=== PATIENT | female | born 1960 | race Caucasian/White ===

== ENCOUNTER 2020-04-22 09:07 | Emergency (ER) | payer OTHER ==
[2020-04-22] MEDS ORDERED: HYDROmorphone 1 MG/ML Syringe IVPUSH STA (09:43)
[2020-04-22] MEDS ORDERED: Ondansetron 4 MG/2 ML SDV IVPUSH ONE (09:43)
--- NOTE | 2020-04-22 09:47 | EDM.PDOC ---
ED HPI GENERAL MEDICAL PROBLEM - General Chief Complaint: Abdominal Pain Stated Complaint: ABDOMINAL AND BACK PAIN Time Seen by Provider: 04/22/20 09:20 Source of Information: Reports: Patient History Limitations: Reports: No Limitations - History of Present Illness INITIAL COMMENTS - FREE TEXT/NARRATIVE: Mrs. Remy is a very pleasant 59-year-old woman who now presents the ED with a complaint of upper abdominal pain, primarily in the epigastrium, but also to the right upper quadrant, and, less so, to the left upper quadrant, that began around 22:00 last night, while she was watching television. She describes the pain as sharp in character. She states that it radiates through to her midline back. She has not identified any modifiers. She has not had any nausea, altho ugh she did force herself to vomit this morning, in the hope that it would help her symptoms, which it did not. No prior similar symptoms. The patient states that she had similar symptoms about 1 month ago. They lasted for about 3 hours and resolved on their own. She did not seek medical attention at that time. The patient states that she ate dinner, consisting of chili, around 18:30 last night, followed by an apple around 21:30. She has not eaten anything since. Here in the ED, the patient is found to be hemodynamically stable, afebrile, saturating 98% on room air. Other than her upper abdominal pain, the patient denies recent fever, chills, sore throat, ear pain, nasal or sinus congestion, cough, dyspnea, chest pain, palpitations, nausea, vomiting, constipation, diarrhea, urinary symptoms, recent weight gain or weight loss, recent bloody bowel movements or black bowel movements, recent joint aches, headaches, or rashes. The patient's PCP is Aubrie Wells NP. Bilateral Chest Pain Score (Numeric/FACES): 10 - Related Data Allergies Allergy/AdvReac Type Severity Reaction Status Date / Time lorazepam AdvReac Depression Verified 08/18/16 18:59 Home Meds: Home Meds FLUoxetine [PROzac] 40 mg PO DAILY 04/22/20 [History] Lisinopril/Hydrochlorothiazide [Lisinopril-Hctz 20-25 mg Tab] 0.5 tab PO DAILY 04/22/20 [History] Simvastatin [Zocor] 40 mg PO BEDTIME 04/22/20 [History] SitaGLIPtin [Januvia] 100 mg PO DAILY 04/22/20 [History] buPROPion HCL [Bupropion Xl] 300 mg PO DAILY 04/22/20 [History] Past Medical History Cardiovascular History: Reports: High Cholesterol, Hypertension Gastrointestinal History: Reports: PUD Musculoskeletal History: Reports: Arthritis, Fracture (left wrist) Psychiatric History: Reports: Anxiety, Depression Endocrine/Metabolic History: Reports: Diabetes, Type II, Obesity/BMI 30+ - Past Surgical History HEENT Surgical History: Reports: Oral Surgery (wisdom teeth extraction) GI Surgical History: Reports: EGD (x 1) Female Surgical History: Reports: Hysterectomy (partial) Musculoskeletal Surgical History: Reports: Arthroscopic Knee (right) Oncologic Surgical History: Reports: Biopsy of Breast (benign; patient does not recall side) Social & Family History - Family History Family Medical History: Noncontributory Cardiac: Reports: Heart Failure, Hypertension Psychiatric: Reports: Depression Endocrine/Metabolic: Reports: Diabetes, type II - Tobacco Use Smoking Status *Q: Never Smoker - Caffeine Use Caffeine Use: Reports: Soda - Alcohol Use Alcohol Use History: Yes Alcohol Use Frequency: Rarely - Recreational Drug Use Recreational Drug Use: No - Living Situation & Occupation Living situation: Reports: , with Spouse Occupation: Employed ([employer]) ED ROS GENERAL - Review of Systems Review Of Systems: Comprehensive ROS is negative, except as noted in HPI. ED EXAM, GI/ABD - Physical Exam Exam: See Below Exam Limited By: No Limitations General Appearance: Alert, WD/WN, Mild Distress (appears uncomfortable) Eyes: Bilateral: Normal Appearance, EOMI Ears: Normal External Exam, Hearing Loss Nose: Normal Inspection Throat/Mouth: Normal Inspection, Normal Lips, Normal Voice, No Airway Compromise Head: Atraumatic, Normocephalic Neck: Normal Inspection, Full Range of Motion Respiratory/Chest: No Respiratory Distress, Lungs Clear, Normal Breath Sounds, No Accessory Muscle Use Cardiovascular: Normal Peripheral Pulses, Regular Rate, Rhythm, No Gallop, No JVD, No Murmur, No Rub GI/Abdominal Exam: Normal Bowel Sounds (active), Soft, No Organomegaly, No Distention, No Abnormal Bruit, No Mass, Tender (Primarily in the epigastrium, but also to the right upper quadrant, and, less so, to the left upper quadrant. Completely nontender elsewhere.) (Female) Exam: Deferred Back Exam: Normal Inspection, Full Range of Motion, Other (The patient indicates that her pain radiates through to her midline mid-back). 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) P-Wave: Present QRS: Other (Late transition) ST-T: Normal QT: Normal Comparison: NA - No Prior EKG Course - Vital Signs Last Recorded V/S: Last Vital Signs Temp 36.2 C 04/22/20 09:21 Pulse 82 04/22/20 09:21 Resp 20 04/22/20 09:21 BP 121/70 04/22/20 09:21 Pulse Ox 98 04/22/20 09:21 - Orders/Labs/Meds Orders: Active Orders 24 hr Category Date Time Status Sodium Chloride 0.9% [Normal Saline] 1,000 ml Med 04/22/20 09:45 Active IV ASDIRECTED Medication Orders Sodium Chloride (Normal Saline) 1,000 mls @ 150 mls/hr IV ASDIRECTED FERNANDA Last Admin: 04/22/20 09:55 Dose: 150 mls/hr Documented by: SUNITA Labs: Laboratory Tests 04/22/20 04/22/20 04/22/20 Range/Units 09:25 09:25 13:55 WBC 9.66 (3.98-10.04) K/mm3 RBC 4.23 (3.98-5.22) M/mm3 Hgb 12.5 (11.2-15.7) gm/dl Hct 38.9 (34.1-44.9) % MCV 92.0 (79.4-94.8) fl MCH 29.6 (25.6-32.2) pg MCHC 32.1 L (32.2-35.5) g/dl RDW Std Deviation 48.6 H (36.4-46.3) fL Plt Count 183 (182-369) K/mm3 MPV 11.6 (9.4-12.3) fl Neutrophils % (Manual) 75 H (40-60) % Band Neutrophils % 0 (0-10) % Lymphocytes % (Manual) 16 L (20-40) % Atypical Lymphs % 0 % Monocytes % (Manual) 7 (2-10) % Eosinophils % (Manual) 2 (0.7-5.8) % Basophils % (Manual) 0 L (0.1-1.2) Platelet Estimate Adequate RBC Morph Comment Normal Sodium 141 (136-145) mEq/L Potassium 3.5 (3.5-5.1) mEq/L Chloride 102 (98-107) mEq/L Carbon Dioxide 30 (21-32) mEq/L Anion Gap 12.5 (5-15) BUN 21 H (7-18) mg/dL Creatinine 1.2 H (0.55-1.02) mg/dL Est Cr Clr Drug Dosing 43.05 mL/min Estimated GFR (MDRD) 46 (>60) mL/min BUN/Creatinine Ratio 17.5 (14-18) Glucose 152 H (74-106) mg/dL Calcium 10.2 H (8.5-10.1) mg/dL Total Bilirubin 1.7 H 2.1 H (0.2-1.0) mg/dL AST 391 H 433 H (15-37) U/L ALT 249 H 307 H (14-59) U/L Alkaline Phosphatase 208 H 229 H (46-116) U/L Total Protein 6.4 (6.4-8.2) g/dl Albumin 3.6 (3.4-5.0) g/dl Globulin 2.8 gm/dL Albumin/Globulin Ratio 1.3 (1-2) Lipase 102 (73-393) U/L COVID-19 (ISABELLE) (NEGATIVE) 04/22/20 Range/Units 15:25 WBC (3.98-10.04) K/mm3 RBC (3.98-5.22) M/mm3 Hgb (11.2-15.7) gm/dl Hct (34.1-44.9) % MCV (79.4-94.8) fl MCH (25.6-32.2) pg MCHC (32.2-35.5) g/dl RDW Std Deviation (36.4-46.3) fL Plt Count (182-369) K/mm3 MPV (9.4-12.3) fl Neutrophils % (Manual) (40-60) % Band Neutrophils % (0-10) % Lymphocytes % (Manual) (20-40) % Atypical Lymphs % % Monocytes % (Manual) (2-10) % Eosinophils % (Manual) (0.7-5.8) % Basophils % (Manual) (0.1-1.2) Platelet Estimate RBC Morph Comment Sodium (136-145) mEq/L Potassium (3.5-5.1) mEq/L Chloride (98-107) mEq/L Carbon Dioxide (21-32) mEq/L Anion Gap (5-15) BUN (7-18) mg/dL Creatinine (0.55-1.02) mg/dL Est Cr Clr Drug Dosing mL/min Estimated GFR (MDRD) (>60) mL/min BUN/Creatinine Ratio (14-18) Glucose (74-106) mg/dL Calcium (8.5-10.1) mg/dL Total Bilirubin (0.2-1.0) mg/dL AST (15-37) U/L ALT (14-59) U/L Alkaline Phosphatase (46-116) U/L Total Protein (6.4-8.2) g/dl Albumin (3.4-5.0) g/dl Globulin gm/dL Albumin/Globulin Ratio (1-2) Lipase (73-393) U/L COVID-19 (ISABELLE) Negative (NEGATIVE) Meds: Medications Generic Name Dose Route Start Last Admin Trade Name Freq PRN Reason Stop Dose Admin Sodium Chloride 1,000 mls @ 150 mls/hr 04/22/20 09:45 04/22/20 09:55 Normal Saline IV 150 mls/hr ASDIRECTED FERNANDA Administration Discontinued Medications Generic Name Dose Route Start Last Admin Trade Name Freq PRN Reason Stop Dose Admin Diatrizoate Meglum/Diatrizoate Sod 90 ml 04/22/20 11:34 04/22/20 12:02 Gastrografin 37% PO 04/22/20 11:35 90 ml ONETIME ONE Administration Hydromorphone HCl 1 mg 04/22/20 09:43 08/09/20 09:56 Dilaudid IVPUSH 04/22/20 09:44 1 mg ONETIME STA Administration Iopamidol 50 ml 04/22/20 11:34 04/22/20 12:01 Isovue-300 (61%) IVPUSH 04/22/20 11:35 25 ml ONETIME ONE Administration Iopamidol 100 ml 04/22/20 11:34 04/22/20 12:01 Isovue-300 (61%) IVPUSH 04/22/20 11:35 100 ml ONETIME ONE Administration Ondansetron HCl 4 mg 04/22/20 09:43 04/22/20 09:56 Zofran IVPUSH 04/22/20 09:44 4 mg ONETIME ONE Administration Sodium Chloride 10 ml 04/22/20 11:34 04/22/20 12:02 Saline Flush FLUSH 04/22/20 11:35 10 ml ONETIME ONE Administration - Re-Assessments/Exams Free Text/Narrative Re-Assessment/Exam: 04/22/20 09:44 As above, the patient developed upper abdominal pain, primarily in the ep igastrium, but felt across her upper abdomen, that radiates through to her central back, last night. She appears to be uncomfortable, and on abdominal exam, she has active bowel sounds but considerable tenderness primarily to the epigastrium, but also to the right upper quadrant and a bit to the left upper quadrant. She is completely nontender elsewhere, and she has no CVA tenderness. Her presentation is most concerning for pancreatitis, however, it may very well be gallstone pancreatitis. I have ordered a work-up that includes, first, an ultrasound of her right upper quadrant, and when she returns from that, she will be given oral contrast in preparation for a CT of her abdomen and pelvis with oral and IV contrast. In the meantime, I have ordered blood work, and the patient will be given IV Dilaudid, IV Zofran, and IV fluid. 04/22/20 10:52 The patient's CBC is unremarkable. Her CMP is remarkable for a BUN/Cr elevated at 21/1.2, with a blood glucose elevated at 152. Her TBil is elevated at 1.7, while her AST/ALT are elevated at 391/249, respectively, and her alkaline phosphatase is elevated at 208, with the remainder of her CMP being unremarkable. Her lipase is within normal limits at 102. 04/22/20 11:26 Ultrasound of the right upper quadrant is read by Dr. Bui as: 1. Slightly distended gallbladder which may relate to fasting. No gallbladder wall thickening or biliary duct dilatation is seen. No gallstones are appreciated. If patient still has biliary symptoms, nuclear medicine HIDA scan with gallbladder ejection fraction could be considered. 2. Other portions of the right upper quadrant abdominal ultrasound shows no discrete abnormality. 04/22/20 13:00 CT of the abdomen and pelvis with oral and IV contrast is read by Dr. Bui as: 1. Dilated gallbladder which was noted on prior abdominal ultrasound. 2. Diverticulosis without diverticulitis. 3. Degenerative changes scattered throughout the spine. 4. No acute findings otherwise seen on CT study of the abdomen and pelvis. 04/22/20 13:[address] Rodriges at 13:37. He asked that I repeat the patient's LFTs. If her bilirubin is decreasing, he would like to take her for a la paroscopic cholecystectomy today, however, if her bilirubin is the same or increasing, she will either need to have an MRCP or be transferred for an ERCP. I have therefore ordered repeat LFTs, and will call him with the results. 04/22/20 13:47 I updated both the patient and Claudia GABRIEL of the above plan. 04/22/20 13:59 Because the patient will either go to the OR, be placed into observation, or be transferred to a different facility, I have ordered a test for the SARS-CoV-2 virus. 04/22/20 15:01 The patient's Tbil luna to 2.1, her AST/ALT luna to 433/307, and her alkaline phosphatase luna to 229. Case discussed with Dr. Rodriges at 14:59. He recommended that I discuss the case with a Dip L[employer] Operator in [place], to see if they would be willing to accept the patient for an ERCP. 04/22/20 15:08 The above situation was explained to the patient. She would prefer transfer to [facility]. 04/22/20 15:34 Case discussed with Jennifer at [facility], at 15:10. Ultrasound and CT images were pushed to [facility] at 15:12. Case then discussed with Dr. Jluis Shaikh, Dip Lube Operator perfusionist at [facility], at 15:15. He stated that he, personally, does not perform ERCPs, and that one of his partners, Dr. Self, who does perform ERCPs, will not be back until tomorrow. He felt, however, that the patient would benefit from an MRCP, so that they have an imaging study which shows a problem with the common bile duct. I explained that we can perform an MRCP here, but that I cannot order it from the ED, and not on the weekend. Further, we will not know until midnight as to whether or not there will be an opening on the schedule tomorrow. I therefore requested that I admit the patient to the Hospitalist their facility, have them acquire an MRCP and, if positive, have them consulted Dr. Self for an ERCP tomorrow. Dr. Shaikh agreed. Case then discussed with Dr. Hart, Hospitalist perfusionist at [facility], at 15:30. He accepted the patient for transfer to their facility. The patient will be transferred by ground ambulance. 04/22/20 16:04 The patient's test for the SARS-CoV-2 virus returned negative. Departure - Departure Time of Disposition: 15:38 Disposition: DC/Tfer to Acute Hospital 02 Condition: Fair Clinical Impression: Cholangitis, Elevated LFTs - Discharge Information *PRESCRIPTION DRUG MONITORING PROGRAM REVIEWED*: Not Applicable *COPY OF PRESCRIPTION DRUG MONITORING REPORT IN PATIENT HECTOR: Not Applicable Referrals: Aubrie Wells BOOT AND SHOE REPAIRMAN [Primary Care Provider] - Forms: ED Department Discharge Sepsis Event Note (ED) - Evaluation Sepsis Screening Result: No Definite Risk - Focused Exam Vital Signs: Vital Signs Temp Pulse Resp BP Pulse Ox 04/22/20 09:21 36.2 C 82 20 121/70 98 - My Orders Last 24 Hours: My Active Orders 04/22/20 09:45 Sodium Chloride 0.9% [Normal Saline] 1,000 ml IV ASDIRECTED - Assessment/Plan Last 24 Hours: My Active Orders 04/22/20 09:45 Sodium Chloride 0.9% [Normal Saline] 1,000 ml IV ASDIRECTED
[2020-04-22] MEDS: Sodium Chloride 0.9% 1,000 ML IV SCH ×2 (09:55→17:46)
--- NOTE | 2020-04-22 11:06 | US ---
Limited abdominal ultrasound: Multiple real time images were obtained trans-abdominally. Study obtained of the right upper quadrant. Technologist's note: Suboptimal exam, bowel gas and body habitus Findings: Liver shows no focal parenchymal abnormality. Gallbladder slightly distended but shows no gallbladder wall thickening or biliary duct dilatation. Pancreas is incompletely seen. Visualized portions of the pancreas shows no discrete abnormality. Right kidney shows no hydronephrosis or mass. Right kidney has a length of 9.5 cm. Main portal vein shows normal hepatopedal flow. Inferior vena cava is patent. Impression: 1. Slightly distended gallbladder which may relate to fasting. No gallbladder wall thickening or biliary duct dilatation is seen. No gallstones are appreciated. If patient still has biliary symptoms, nuclear medicine HIDA scan with gallbladder ejection fraction could be considered. 2. Other portions of the right upper quadrant abdominal ultrasound shows no discrete abnormality. Diagnostic code #3 This report was dictated in MDT
[2020-04-22] MEDS ORDERED: Diatrizoate Meglumine/Diatrizoate Sodium 37% 120 ML Bottle PO ONE (11:34)
[2020-04-22] MEDS ORDERED: Sodium Chloride 0.9% 10 ML Syringe FLUSH ONE (11:34)
[2020-04-22] MEDS ORDERED: Iopamidol 612 MG/ML 50 ML SDV IVPUSH ONE (11:34)
[2020-04-22] MEDS ORDERED: Iopamidol 612 MG/ML 100 ML Bottle IVPUSH ONE (11:34)
--- NOTE | 2020-04-22 12:23 | CT ---
CT abdomen and pelvis Technique: Multiple axial sections were obtained from above the dome of the diaphragm inferiorly through the pubic symphysis. Intravenous contrast was utilized. Reconstructed coronal and sagittal images were obtained. Delayed images also obtained to the bladder. Comparison: Previous abdominal ultrasound performed earlier on the same day (10:20 AM). Findings: Visualized lung bases show nothing acute. Liver and spleen shows no focal parenchymal abnormality. Gallbladder is dilated. Pancreas shows no focal parenchymal abnormality. Kidneys show symmetric contrast enhancement with no hydronephrosis or mass. Adrenal glands show no nodule. Aorta shows no aneurysm. No retroperitoneal adenopathy or mesenteric abnormalities are seen. No pelvic mass or adenopathy is noted. Diverticuli are seen within the sigmoid colon and within portions of the descending colon without inflammatory change of diverticulitis. Appendix is seen which is normal in size. Delayed images shows contrast within the bladder. Bone window settings were reviewed which shows degenerative change scattered within the spine. No acute osseous finding is appreciated. Impression: 1. Dilated gallbladder which was noted on prior abdominal ultrasound. 2. Diverticulosis without diverticulitis. 3. Degenerative change is scattered throughout the spine. 4. No acute finding is otherwise seen on CT study of the abdomen and pelvis. Diagnostic code #3 This report was dictated in MDT
[2020-04-22] MEDS ORDERED: HYDROmorphone 1 MG/ML Syringe ONE (16:39)
[2020-04-22] MEDS ORDERED: HYDROmorphone 1 MG/ML Syringe IVPUSH ONE (17:41)
[2020-04-22 17:50] VITALS: BP 91/47; PULSE 76
== END 2020-04-22 17:00 ==
LOC: JD.ED 09:07
DX: K83.09 Other cholangitis (principal); R79.89 Other specified abnormal findings of blood chemistry; E78.00 Pure hypercholesterolemia, unspecified; I10 Essential (primary) hypertension; F41.9 Anxiety disorder, unspecified; F32.9 Major depressive disorder, single episode, unspecified; E11.9 Type 2 diabetes mellitus without complications; E66.9 Obesity, unspecified; Z68.37 Body mass index [BMI] 37.0-37.9, adult; Z20.828 Contact with and (suspected) exposure to other viral communicable diseases; Z88.8 Allergy status to other drugs, medicaments and biological substances; Z90.710 Acquired absence of both cervix and uterus; Z79.899 Other long term (current) drug therapy
CPT/HCPCS: 36415; 74177; 76705; 80053; 82247; 83690; 84075; 84450; 84460; 85007; 85027; 87635; 96361; 96374; 96375; 96376; 99285; J1170; J2405; J7030; Q9963; Q9967; 93010; U0002

== ENCOUNTER → 2021-08-29 | Day surgery (SDC) | payer OTHER ==
[~2021-08-29] MED LIST: Acetaminophen 325 MG Tab PO SCH; Cyclobenzaprine 10 MG Tab PO PRN; Dexamethasone 4 MG/ML 5 ML MDV ONE; Dexmedetomidine 200 MCG/2 ML SDV ONE; HYDROmorphone 0.5 MG/0.5 ML Syringe IVPUSH PRN; Lactated Ringers 1,000 ML IV SCH; Lidocaine 1%/Sod Bicarbonate in NS 8.4% 1 ML Syringe IDERM PRN; Midazolam 1 MG/ML 2 ML SDV IVPUSH PRN; Midazolam 1 MG/ML 2 ML SDV ONE; Ondansetron 4 MG/2 ML SDV IVPUSH PRN; Pregabalin 25 MG Cap PO SCH; Propofol 200 MG/20 ML SDV ONE; Ropivacaine 0.5% 5 MG/ML 30 ML SDV ONE; Sodium Chloride 0.9% 10 ML Syringe FLUSH PRN; ceFAZolin 1 GM Vial ONE; fentaNYL 100 MCG/2 ML SDV IVPUSH PRN; fentaNYL 100 MCG/2 ML SDV ONE; oxyCODONE 5 MG Tab PO PRN; oxyCODONE ER 10 MG TAB.ER PO SCH
[2021-08-29] MEDS: Morphine 8 MG, EPINEPHrine 0.3 MG, Cefuroxime 750 MG, Ketorolac 30 MG, Sodium Chloride ... PRN ×10 (12:16→13:06)
[2021-08-29] MEDS: Vancomycin 1 GM SDV ONE ×2 (12:21→13:07)
[2021-08-29] MEDS: Bupivacaine 0.25% 10 ML SDV ONE ×2 (12:44→13:08)
[2021-08-29] MEDS: Triamcinolone Acetonide 40 MG/ML 1 ML SDV ONE ×2 (12:44→13:08)
[2021-08-29 15:54] VITALS: PULSE 68
[2021-08-29 15:55] VITALS: BP 106/78
== END | disposition home or self-care (01) ==
LOC: JD.SDS 09:18
PROVIDERS: ATTEND Orthopaedic Surgery
DX: M17.0 Bilateral primary osteoarthritis of knee (principal); E11.9 Type 2 diabetes mellitus without complications; E66.9 Obesity, unspecified; F41.9 Anxiety disorder, unspecified; R91.1 Solitary pulmonary nodule; I10 Essential (primary) hypertension; E78.00 Pure hypercholesterolemia, unspecified; Z88.8 Allergy status to other drugs, medicaments and biological substances; Z79.899 Other long term (current) drug therapy; Z79.84 Long term (current) use of oral hypoglycemic drugs; Z98.890 Other specified postprocedural states; Z68.37 Body mass index [BMI] 37.0-37.9, adult
CPT/HCPCS: 20610; 27447; 73560; 82947; 97110; 97116; 97161; A9270; C1713; C1776; J0171; J0690; J0697; J1100; J1885; J2250; J2270; J2704; J2795; J3010; J3301; J3370; J3490; J7120; 01402; 64450; 76942

== ENCOUNTER 2021-09-10 18:13 | Emergency (ER) | payer OTHER ==
[2021-09-10] MEDS ORDERED: Ondansetron 4 MG/2 ML SDV IVPUSH ONE (18:35)
[2021-09-10] MEDS ORDERED: HYDROmorphone 0.5 MG/0.5 ML Syringe IVPUSH ONE ×2 (18:35→19:56)
--- NOTE | 2021-09-10 19:31 | EDM.PDOC ---
ED HPI GENERAL MEDICAL PROBLEM - General Chief Complaint: Lower Extremity Injury/Pain Stated Complaint: KNEE PAIN Time Seen by Provider: 09/10/21 18:18 Source of Information: Reports: Patient, Provider History Limitations: Reports: No Limitations - History of Present Illness INITIAL COMMENTS - FREE TEXT/NARRATIVE: 61-year-old female presents the emergency department after being evaluated at [facility] by JONELLE Sotomayor. Patient had a prosthetic of her right knee placed 1 week 5 days ago. Patient states she fell yesterday and was seen in the [facility] today. X-rays were completed and it was discovered that she has a periprosthetic fracture of her right knee. There did try to transfer the patient to [facility] in [place] with Dr. Plunkett, orthopedic surgeon, and Dr. Funk, ER physician, excepting care of the patient however the patient is unable to transfer by private vehicle as she does not have anyone in the facility who is willing to take her to [place]. Thus it was elected to have the patient be registered in the emergency department and transferred via ambulance service. Right Knee Pain Score (Numeric/FACES): 10 - Related Data Allergies Allergy/AdvReac Type Severity Reaction Status Date / Time lorazepam AdvReac Depression Verified 09/15/21 14:03 Home Meds: Home Meds FLUoxetine [PROzac] 80 mg PO DAILY 04/22/20 [History] Simvastatin [Zocor] 40 mg PO BEDTIME 04/22/20 [History] buPROPion HCL [Bupropion Xl] 300 mg PO DAILY 04/22/20 [History] Cyclobenzaprine [Flexeril] 10 mg PO BID PRN #20 tab 08/28/21 [Rx] oxyCODONE 5 - 10 mg PO Q4H PRN #40 tab 08/28/21 [Rx] Estazolam [Prosom] 4 mg PO DAILY 09/15/21 [History] metFORMIN [Glucophage XR] 750 mg PO DAILY 09/15/21 [History] Apixaban [Eliquis] 2.5 mg PO BID 09/16/21 [History] Celecoxib [CeleBREX] 200 mg PO DAILY 09/16/21 [History] Hydrocodone/Acetaminophen [HYDROcodone-Acetaminophen 5-325 MG] 1 - 2 tab PO Q4H PRN 09/16/21 [History] Lisinopril/Hydrochlorothiazide [Lisinopril-HCTZ 10-12.5 MG] 1 tab PO DAILY 09/16/21 [History] Ondansetron [Zofran ODT] 8 mg PO Q8HR PRN 09/16/21 [History] Orphenadrine Citrate [Orphenadrine Citrate ER] 100 mg PO BID PRN 09/16/21 [History] Tapentadol [Nucynta] 50 - 100 mg PO Q6HR PRN 09/16/21 [History] Past Medical History HEENT History: Reports: None Cardiovascular History: Reports: High Cholesterol, Hypertension Respiratory History: Reports: Asthma Gastrointestinal History: Reports: PUD Genitourinary History: Reports: None BLASTING ENTRY SPECIALIST History: Reports: Other (See Below) Other BLASTING ENTRY SPECIALIST History: breast biopsy and lump Musculoskeletal History: Reports: Arthritis, Fracture Neurological History: Reports: None Psychiatric History: Reports: Anxiety, Depression Endocrine/Metabolic History: Reports: Diabetes, Type II, Obesity/BMI 30+ Hematologic History: Reports: Anemia Immunologic History: Reports: None Oncologic (Cancer) History: Reports: None Dermatologic History: Reports: None - Past Surgical History HEENT Surgical History: Reports: Cataract Surgery, Oral Surgery GI Surgical History: Reports: EGD Female Surgical History: Reports: Hysterectomy, Other (See Below) Musculoskeletal Surgical History: Reports: Arthroscopic Knee Oncologic Surgical History: Reports: Biopsy of Breast Social & Family History - Family History Family Medical History: No Pertinent Family History Cardiac: Reports: Heart Failure, Hypertension Psychiatric: Reports: Depression Endocrine/Metabolic: Reports: Diabetes, type II - Tobacco Use Tobacco Use Status *Q: Never Tobacco User Second Hand Smoke Exposure: No - Caffeine Use Caffeine Use: Reports: None - Recreational Drug Use Recreational Drug Use: No - Living Situation & Occupation Living situation: Reports: , with Spouse Occupation: Employed ([employer]) Review of Systems - Review of Systems Review Of Systems: Comprehensive ROS is negative, except as noted in HPI. ED EXAM, GENERAL - Physical Exam Exam: See Below Exam Limited By: No Limitations General Appearance: Alert, WD/WN, Mild Distress Ears: Normal External Exam, Hearing Grossly Normal Nose: Normal Inspection Throat/Mouth: Normal Inspection, Normal Lips, Normal Voice, No Airway Compromise Head: Atraumatic Neck: Normal Inspection, Supple Respiratory/Chest: No Respiratory Distress, No Accessory Muscle Use Cardiovascular: Normal Peripheral Pulses, Regular Rate, Rhythm Peripheral Pulses: 2+: Dorsalis Pedis (L), Dorsalis Pedis (R) GI/Abdominal: Normal Bowel Sounds, Soft, Non-Tender, No Distention (Female) Exam: Deferred Rectal (Female) Exam: Deferred Back Exam: Normal Inspection Extremities: Normal Capillary Refill, Limited Range of Motion (Right lower extremity due to periprosthetic fracture of right knee). No: Non-Tender (Right knee is exquisitely tender) Neurological: Alert, Oriented, Normal Cognition Psychiatric: Normal Affect, Normal Mood Skin Exam: Warm, Dry, Intact, Normal Color, No Rash Lymphatic: No Adenopathy Course - Vital Signs Text/Narrative:: As stated above, patient does have a periprosthetic fracture noted to the right knee. Right knee immobilizer brace was placed per Tierney Perkins's quest. Chambers catheter was also placed as the patient is immobile and will require surgery when she arrives at [facility] in [place]. Patient states she is having pain rated 10 out of 10 at this time in the right knee. Patient has received 1/2 mg of Dilaudid IV as well as 4 mg of Zofran IV. CMS is intact to the right lower extremity and pedal pulses are present. Remainder physical exam is otherwise unremarkable. I have phoned [facility] in [place] and they state that patient may be transferred immediately. Last Recorded V/S: Last Vital Signs Temp 97.2 F 09/10/21 20:39 Pulse 86 09/10/21 20:39 Resp 18 09/10/21 18:32 BP 103/53 L 09/10/21 20:39 Pulse Ox 100 09/10/21 18:32 - Orders/Labs/Meds Meds: Medications Discontinued Medications Generic Name Dose Route Start Last Admin Trade Name Freq PRN Reason Stop Dose Admin Hydromorphone HCl 0.25 mg 09/10/21 18:35 09/10/21 18:50 Hydromorphone 0.5 Mg/0.5 Ml Syringe IVPUSH 09/10/21 18:36 0.25 mg ONETIME ONE Administration Hydromorphone HCl 0.5 mg 09/10/21 19:56 09/10/21 20:03 Hydromorphone 0.5 Mg/0.5 Ml Syringe IVPUSH 09/10/21 19:57 0.5 mg ONETIME ONE Administration Ondansetron HCl 4 mg 09/10/21 18:35 09/10/21 18:50 Ondansetron 4 Mg/2 Ml Sdv IVPUSH 09/10/21 18:36 4 mg ONETIME ONE Administration Departure - Departure Time of Disposition: 20:39 Disposition: DC/Tfer to Acute Hospital 02 Condition: Fair Clinical Impression: Periprosthetic fracture around prosthetic knee Qualifiers: Encounter type: initial encounter Laterality: right Qualified Code(s): M97.11XA - Periprosthetic fracture around internal prosthetic right knee joint, initial encounter - Discharge Information Referrals: Aubrie Wells, CARTRIDGE GAUGER [Primary Care Provider] - Forms: ED Department Discharge
[2021-09-10 20:43] VITALS: BP 103/53; PULSE 86
== END 2021-09-10 20:38 ==
LOC: JD.ED 18:13
DX: M97.11XA Periprosthetic fracture around internal prosthetic right knee joint, initial encounter (principal); E78.00 Pure hypercholesterolemia, unspecified; I10 Essential (primary) hypertension; E11.9 Type 2 diabetes mellitus without complications; E66.9 Obesity, unspecified; Z68.36 Body mass index [BMI] 36.0-36.9, adult; Z88.5 Allergy status to narcotic agent; Z79.899 Other long term (current) drug therapy; Z79.01 Long term (current) use of anticoagulants
CPT/HCPCS: 51702; 96374; 96375; 96376; 99284; J1170; J2405

== ENCOUNTER 2021-09-15 13:35 | Inpatient (IN) | payer OTHER ==
[2021-09-15] MEDS ORDERED: Acetaminophen/HYDROcodone 325-5 MG Tab PO ONE (15:48)
[2021-09-15] MEDS ORDERED: Ondansetron 4 MG Tab.DIS PO PRN (15:48)
[2021-09-15] MEDS ORDERED: Cyclobenzaprine 10 MG Tab PO PRN (15:50)
[2021-09-15] MEDS: oxyCODONE 5 MG Tab PO PRN ×2 (17:47→22:04)
[2021-09-16] MEDS: traZODone 50 MG Tab PO PRN ×2 (01:35→21:45)
[2021-09-16] MEDS: oxyCODONE 5 MG Tab PO PRN ×2 (03:08→23:43)
[2021-09-16] MEDS ORDERED: Lidocaine 1% 4 ML ONE (07:26)
[2021-09-16] MEDS ORDERED: fentaNYL 100 MCG/2 ML SDV ONE ×4 (07:26→12:42)
[2021-09-16] MEDS ORDERED: Midazolam 1 MG/ML 2 ML SDV ONE (07:26)
[2021-09-16] MEDS ORDERED: Propofol 200 MG/20 ML SDV ONE ×6 (07:26→10:44)
[2021-09-16] MEDS ORDERED: Lactated Ringers 1,000 ML ONE ×3 (07:32→10:58)
[2021-09-16] MEDS ORDERED: Ropivacaine 0.5% 5 MG/ML 30 ML SDV ONE (07:51)
[2021-09-16] MEDS ORDERED: EPINEPHrine 1 MG/ML SDV ONE (07:51)
[2021-09-16] MEDS ORDERED: Morphine 8 MG, EPINEPHrine 0.3 MG, Cefuroxime 750 MG, Ketorolac 30 MG, Sodium Chloride ... PRN ×5 (08:20)
[2021-09-16] MEDS ORDERED: Non-Formulary Medication 1 Each (Sitagliptin 100 MG Tablet) PO SCH (09:00)
[2021-09-16] MEDS ORDERED: FLUoxetine 20 MG Cap PO SCH (09:00)
[2021-09-16] MEDS ORDERED: ceFAZolin 1 GM Vial ONE (10:33)
[2021-09-16] MEDS: Vancomycin 1 GM SDV ONE ×2 (10:37→10:43)
[2021-09-16] MEDS: buPROPion 150 MG Tab.ER PO SCH (11:16)
[2021-09-16] MEDS ORDERED: Docusate Sodium 100 MG Cap PO PRN (11:21)
[2021-09-16] MEDS ORDERED: Magnesium Hydroxide 400 MG/5 ML Susp 30 ML Cup PO PRN (11:21)
[2021-09-16] MEDS ORDERED: Morphine 2 MG/ML SYRINGE IVPUSH PRN (11:21)
[2021-09-16] MEDS ORDERED: Sennosides 8.6 MG Tab PO PRN (11:21)
[2021-09-16] MEDS ORDERED: Bisacodyl 5 MG Tab PO PRN (11:21)
[2021-09-16] MEDS ORDERED: Ondansetron 4 MG/2 ML SDV IVPUSH PRN (11:21)
[2021-09-16] MEDS ORDERED: Naloxone 0.4 MG/ML SDV IVPUSH PRN (11:21)
[2021-09-16] MEDS: fentaNYL 100 MCG/2 ML SDV IVPUSH PRN ×2 (11:31→11:47)
[2021-09-16] MEDS ORDERED: HYDROmorphone 0.5 MG/0.5 ML Syringe ONE (11:55)
[2021-09-16] MEDS ORDERED: HYDROmorphone 0.5 MG/0.5 ML Syringe IVPUSH PRN (12:03)
[2021-09-16] MEDS ORDERED: Ketorolac 30 MG/ML SDV IVPUSH PRN (12:03)
[2021-09-16] MEDS ORDERED: fentaNYL 100 MCG/2 ML SDV IVPUSH ONE ×2 (12:52→12:59)
[2021-09-16] MEDS ORDERED: diphenhydrAMINE 50 MG/ML SDV IVPUSH ONE (13:00)
[2021-09-16] MEDS ORDERED: Ketorolac 15 MG/ML SDV IVPUSH PRN (15:00)
[2021-09-16] MEDS: Simvastatin 40 MG Tab PO SCH ×2 (17:23→20:15)
[2021-09-16] MEDS: ceFAZolin 1 GM in Sodium Chloride 0.9% 50 ML IV SCH ×2 (18:17→18:32)
[2021-09-16] MEDS ORDERED: ceFAZolin 2 GM in Premix Bag 1 BAG IV SCH (19:00)
[2021-09-16] MEDS ORDERED: Famotidine 20 MG Tab PO SCH (21:00)
[2021-09-16] MEDS: Ketorolac 15 MG/ML SDV IVPUSH PRN (21:42)
[2021-09-16] MEDS: Cyclobenzaprine 10 MG Tab PO PRN (23:45)
[2021-09-17] MEDS: oxyCODONE 5 MG Tab PO PRN ×5 (02:43→20:00)
[2021-09-17] MEDS: ceFAZolin 1 GM in Sodium Chloride 0.9% 50 ML IV SCH ×2 (02:59→03:30)
[2021-09-17] MEDS ORDERED: Ondansetron 4 MG/2 ML SDV IVPUSH ONE (03:24)
[2021-09-17] MEDS: Ketorolac 15 MG/ML SDV IVPUSH PRN (03:44)
[2021-09-17] MEDS: Apixaban 2.5 MG Tab PO SCH ×2 (09:15→20:28)
[2021-09-17] MEDS: buPROPion 150 MG Tab.ER PO SCH (09:16)
[2021-09-17] MEDS: FLUoxetine 20 MG Cap PO SCH (09:20)
[2021-09-17] MEDS: Potassium Chloride 20 MEQ Tab.ER PO SCH ×2 (09:24→20:29)
[2021-09-17] MEDS ORDERED: Haloperidol 1 MG Tab PO ONE (09:26)
[2021-09-17] MEDS: Famotidine 20 MG Tab PO SCH (09:26)
[2021-09-17] MEDS: Lisinopril 10 MG Tab PO SCH (09:27)
[2021-09-17] MEDS: Acetaminophen 325 MG Tab PO PRN ×2 (09:40→17:32)
[2021-09-17] MEDS ORDERED: ceFAZolin 1 GM in Sodium Chloride 0.9% 50 ML IV SCH (11:00)
[2021-09-17] MEDS ORDERED: ceFAZolin 2 GM in Premix Bag 1 BAG IV ONE (11:00)
[2021-09-17] MEDS ORDERED: QUEtiapine 25 MG Tab PO ONE (12:10)
[2021-09-17] MEDS ORDERED: diphenhydrAMINE 50 MG Cap PO ONE (12:12)
[2021-09-17] MEDS: Cyclobenzaprine 10 MG Tab PO PRN ×2 (12:39→23:16)
[2021-09-17] MEDS: Insulin Lispro 100 Unit/ML 3 ML KwikPen SUBCUT SCH ×3 (12:48→20:12)
[2021-09-17] MEDS ORDERED: Ondansetron 4 MG/2 ML SDV IVPUSH PRN (17:06)
[2021-09-17] MEDS ORDERED: Magnesium Hydroxide 400 MG/5 ML Susp 30 ML Cup PO ONE (19:46)
[2021-09-17] MEDS: Simvastatin 40 MG Tab PO SCH (20:29)
[2021-09-17] MEDS: QUEtiapine 25 MG Tab PO SCH (20:30)
[2021-09-17] MEDS ORDERED: Haloperidol 5 MG Tab PO SCH (21:00)
[2021-09-17] MEDS ORDERED: ESTAZOLAM 1 MG PO SCH (21:00)
[2021-09-18] MEDS: oxyCODONE 5 MG Tab PO PRN ×3 (06:58→17:47)
[2021-09-18] MEDS: Insulin Lispro 100 Unit/ML 3 ML KwikPen SUBCUT SCH ×4 (07:00→21:07)
[2021-09-18] MEDS: buPROPion 150 MG Tab.ER PO SCH (08:02)
[2021-09-18] MEDS: Lisinopril 10 MG Tab PO SCH (08:02)
[2021-09-18] MEDS: Famotidine 20 MG Tab PO SCH (08:03)
[2021-09-18] MEDS: Cyclobenzaprine 10 MG Tab PO PRN ×3 (08:03→17:47)
[2021-09-18] MEDS: FLUoxetine 20 MG Cap PO SCH (08:03)
[2021-09-18] MEDS: Apixaban 2.5 MG Tab PO SCH ×2 (08:03→21:07)
[2021-09-18] MEDS: Docusate Sodium 100 MG Cap PO SCH ×2 (09:40→21:07)
[2021-09-18] MEDS: Magnesium Hydroxide 400 MG/5 ML Susp 30 ML Cup PO PRN (09:40)
[2021-09-18] MEDS: Acetaminophen 325 MG Tab PO PRN (13:24)
[2021-09-18] MEDS ORDERED: ESTAZOLAM 2 MG PO SCH (13:37)
[2021-09-18] MEDS ORDERED: Lactated Ringers 500 ML IV ONE (19:48)
[2021-09-18] MEDS: Simvastatin 40 MG Tab PO SCH (21:06)
[2021-09-18] MEDS: QUEtiapine 25 MG Tab PO SCH (21:06)
[2021-09-19] MEDS: Insulin Lispro 100 Unit/ML 3 ML KwikPen SUBCUT SCH ×4 (06:56→21:00)
[2021-09-19] MEDS: Famotidine 20 MG Tab PO SCH (09:45)
[2021-09-19] MEDS: FLUoxetine 20 MG Cap PO SCH (09:45)
[2021-09-19] MEDS: Apixaban 2.5 MG Tab PO SCH ×2 (09:45→21:13)
[2021-09-19] MEDS: buPROPion 150 MG Tab.ER PO SCH (09:45)
[2021-09-19] MEDS: oxyCODONE 5 MG Tab PO PRN (09:45)
[2021-09-19] MEDS: Docusate Sodium 100 MG Cap PO SCH ×2 (09:45→21:13)
[2021-09-19] MEDS: QUEtiapine 25 MG Tab PO SCH (21:13)
[2021-09-19] MEDS: Simvastatin 40 MG Tab PO SCH (21:13)
[2021-09-20] MEDS: Magnesium Hydroxide 400 MG/5 ML Susp 30 ML Cup PO PRN (06:41)
[2021-09-20] MEDS: Insulin Lispro 100 Unit/ML 3 ML KwikPen SUBCUT SCH ×4 (07:57→21:19)
[2021-09-20] MEDS: oxyCODONE 5 MG Tab PO PRN ×2 (09:16→13:44)
[2021-09-20] MEDS: Famotidine 20 MG Tab PO SCH (09:17)
[2021-09-20] MEDS: buPROPion 150 MG Tab.ER PO SCH (09:17)
[2021-09-20] MEDS: Apixaban 2.5 MG Tab PO SCH ×2 (09:18→21:18)
[2021-09-20] MEDS: FLUoxetine 20 MG Cap PO SCH (09:18)
[2021-09-20] MEDS: Docusate Sodium 100 MG Cap PO SCH ×2 (09:18→21:18)
[2021-09-20] MEDS: Cyclobenzaprine 10 MG Tab PO PRN (13:43)
[2021-09-20] MEDS ORDERED: Acetaminophen 325 MG Tab PO ONE (16:00)
[2021-09-20] MEDS ORDERED: Celecoxib 100 MG Cap PO ONE (16:00)
[2021-09-20] MEDS: QUEtiapine 25 MG Tab PO SCH (21:18)
[2021-09-20] MEDS: Simvastatin 40 MG Tab PO SCH (21:19)
[2021-09-21] MEDS: Insulin Lispro 100 Unit/ML 3 ML KwikPen SUBCUT SCH ×4 (07:29→20:47)
[2021-09-21] MEDS: Famotidine 20 MG Tab PO SCH (08:53)
[2021-09-21] MEDS: FLUoxetine 20 MG Cap PO SCH (08:53)
[2021-09-21] MEDS: buPROPion 150 MG Tab.ER PO SCH (08:53)
[2021-09-21] MEDS: Apixaban 2.5 MG Tab PO SCH ×2 (08:54→20:47)
[2021-09-21] MEDS: Docusate Sodium 100 MG Cap PO SCH ×2 (08:54→20:48)
[2021-09-21] MEDS: oxyCODONE 5 MG Tab PO PRN ×3 (08:54→20:49)
[2021-09-21] MEDS: Cyclobenzaprine 10 MG Tab PO PRN ×2 (11:43→20:48)
[2021-09-21] MEDS: Acetaminophen 325 MG Tab PO PRN (11:45)
[2021-09-21] MEDS: QUEtiapine 25 MG Tab PO SCH (20:48)
[2021-09-21] MEDS: Simvastatin 40 MG Tab PO SCH (20:48)
[2021-09-21] MEDS: traZODone 50 MG Tab PO PRN (22:42)
[2021-09-22] MEDS: oxyCODONE 5 MG Tab PO PRN ×4 (08:36→21:52)
[2021-09-22] MEDS: Docusate Sodium 100 MG Cap PO SCH ×2 (08:39→21:51)
[2021-09-22] MEDS: Famotidine 20 MG Tab PO SCH (08:40)
[2021-09-22] MEDS: Apixaban 2.5 MG Tab PO SCH ×2 (08:40→21:50)
[2021-09-22] MEDS: Lisinopril 10 MG Tab PO SCH (08:41)
[2021-09-22] MEDS: Hydrochlorothiazide 12.5 MG Cap PO SCH (08:45)
[2021-09-22] MEDS: buPROPion 150 MG Tab.ER PO SCH (08:46)
[2021-09-22] MEDS: FLUoxetine 20 MG Cap PO SCH (08:47)
[2021-09-22] MEDS: Insulin Lispro 100 Unit/ML 3 ML KwikPen SUBCUT SCH ×4 (10:02→21:52)
[2021-09-22] MEDS: Cyclobenzaprine 10 MG Tab PO PRN ×2 (10:57→21:52)
[2021-09-22] MEDS: Acetaminophen 325 MG Tab PO PRN (18:38)
[2021-09-22] MEDS: traZODone 50 MG Tab PO PRN (21:51)
[2021-09-22] MEDS: Simvastatin 40 MG Tab PO SCH (21:51)
[2021-09-22] MEDS: QUEtiapine 25 MG Tab PO SCH (21:51)
[2021-09-23] MEDS: oxyCODONE 5 MG Tab PO PRN ×4 (06:06→22:01)
[2021-09-23] MEDS: buPROPion 150 MG Tab.ER PO SCH (09:13)
[2021-09-23] MEDS: Lisinopril 10 MG Tab PO SCH (09:13)
[2021-09-23] MEDS: Hydrochlorothiazide 12.5 MG Cap PO SCH (09:13)
[2021-09-23] MEDS: Docusate Sodium 100 MG Cap PO SCH ×2 (09:14→20:55)
[2021-09-23] MEDS: Famotidine 20 MG Tab PO SCH (09:14)
[2021-09-23] MEDS: Apixaban 2.5 MG Tab PO SCH ×2 (09:14→20:57)
[2021-09-23] MEDS: Cyclobenzaprine 10 MG Tab PO PRN (09:18)
[2021-09-23] MEDS: FLUoxetine 20 MG Cap PO SCH (09:18)
[2021-09-23] MEDS: Acetaminophen 325 MG Tab PO PRN (09:24)
[2021-09-23] MEDS: Insulin Lispro 100 Unit/ML 3 ML KwikPen SUBCUT SCH ×4 (09:32→20:59)
[2021-09-23] MEDS: Simvastatin 40 MG Tab PO SCH (20:56)
[2021-09-23] MEDS: QUEtiapine 25 MG Tab PO SCH (20:56)
[2021-09-23] MEDS: traZODone 50 MG Tab PO PRN (22:01)
[2021-09-24] MEDS: Insulin Lispro 100 Unit/ML 3 ML KwikPen SUBCUT SCH ×4 (07:56→21:41)
[2021-09-24] MEDS: Docusate Sodium 100 MG Cap PO SCH ×2 (09:05→20:17)
[2021-09-24] MEDS: Apixaban 2.5 MG Tab PO SCH ×2 (09:05→20:18)
[2021-09-24] MEDS: FLUoxetine 20 MG Cap PO SCH (09:05)
[2021-09-24] MEDS: Lisinopril 10 MG Tab PO SCH (09:06)
[2021-09-24] MEDS: oxyCODONE 5 MG Tab PO PRN ×3 (09:06→18:05)
[2021-09-24] MEDS: Hydrochlorothiazide 12.5 MG Cap PO SCH (09:08)
[2021-09-24] MEDS: Famotidine 20 MG Tab PO SCH (09:09)
[2021-09-24] MEDS: buPROPion 150 MG Tab.ER PO SCH (09:09)
[2021-09-24] MEDS: Cyclobenzaprine 10 MG Tab PO PRN ×2 (09:10→21:40)
[2021-09-24] MEDS: Acetaminophen 325 MG Tab PO PRN ×2 (14:07→18:04)
[2021-09-24] MEDS: Magnesium Hydroxide 400 MG/5 ML Susp 30 ML Cup PO PRN (18:33)
[2021-09-24] MEDS: Simvastatin 40 MG Tab PO SCH (20:18)
[2021-09-24] MEDS: QUEtiapine 25 MG Tab PO SCH (20:18)
[2021-09-25] MEDS: Cyclobenzaprine 10 MG Tab PO PRN ×3 (06:29→22:23)
[2021-09-25] MEDS: Magnesium Hydroxide 400 MG/5 ML Susp 30 ML Cup PO PRN (06:29)
[2021-09-25] MEDS: Insulin Lispro 100 Unit/ML 3 ML KwikPen SUBCUT SCH ×4 (07:35→21:35)
[2021-09-25] MEDS: Apixaban 2.5 MG Tab PO SCH ×2 (08:46→20:45)
[2021-09-25] MEDS: FLUoxetine 20 MG Cap PO SCH (08:46)
[2021-09-25] MEDS: Docusate Sodium 100 MG Cap PO SCH ×2 (08:46→20:45)
[2021-09-25] MEDS: Famotidine 20 MG Tab PO SCH (08:47)
[2021-09-25] MEDS: buPROPion 150 MG Tab.ER PO SCH (08:47)
[2021-09-25] MEDS: Acetaminophen 325 MG Tab PO PRN ×2 (12:01→20:45)
[2021-09-25] MEDS: oxyCODONE 5 MG Tab PO PRN ×2 (18:24→23:30)
[2021-09-25] MEDS: Simvastatin 40 MG Tab PO SCH (20:45)
[2021-09-25] MEDS: QUEtiapine 25 MG Tab PO SCH (20:45)
[2021-09-26] MEDS: oxyCODONE 5 MG Tab PO PRN ×2 (04:27→22:31)
[2021-09-26] MEDS: Cyclobenzaprine 10 MG Tab PO PRN ×2 (06:52→21:19)
[2021-09-26] MEDS: Insulin Lispro 100 Unit/ML 3 ML KwikPen SUBCUT SCH ×4 (06:55→20:38)
[2021-09-26] MEDS: FLUoxetine 20 MG Cap PO SCH (08:34)
[2021-09-26] MEDS: buPROPion 150 MG Tab.ER PO SCH (08:35)
[2021-09-26] MEDS: Apixaban 2.5 MG Tab PO SCH ×2 (08:35→21:19)
[2021-09-26] MEDS: Docusate Sodium 100 MG Cap PO SCH ×2 (08:35→21:19)
[2021-09-26] MEDS: Famotidine 20 MG Tab PO SCH (08:35)
[2021-09-26] MEDS: Acetaminophen 325 MG Tab PO PRN ×2 (08:55→14:47)
[2021-09-26] MEDS: QUEtiapine 25 MG Tab PO SCH (21:19)
[2021-09-26] MEDS: Simvastatin 40 MG Tab PO SCH (21:19)
[2021-09-26] MEDS: traZODone 50 MG Tab PO PRN (23:42)
[2021-09-27] MEDS: Insulin Lispro 100 Unit/ML 3 ML KwikPen SUBCUT SCH ×2 (06:54→12:44)
[2021-09-27] MEDS: Famotidine 20 MG Tab PO SCH (09:43)
[2021-09-27] MEDS: buPROPion 150 MG Tab.ER PO SCH (09:43)
[2021-09-27] MEDS: Cyclobenzaprine 10 MG Tab PO PRN (09:43)
[2021-09-27] MEDS: Apixaban 2.5 MG Tab PO SCH (09:43)
[2021-09-27] MEDS: Docusate Sodium 100 MG Cap PO SCH (09:43)
[2021-09-27] MEDS: FLUoxetine 20 MG Cap PO SCH (09:44)
[2021-09-27 11:37] VITALS: BP 127/90; PULSE 85
[2021-09-27] MEDS: oxyCODONE 5 MG Tab PO PRN (12:45)
== END 2021-09-27 14:27 | disposition home health service (06) | DRG 481 ==
LOC: JD.MS 13:35
PROVIDERS: ADMIT Orthopaedic Surgery; ATTEND Orthopaedic Surgery
PROC: 0QSB04Z Reposition Right Lower Femur with Internal Fixation Device, Open Approach (ICD-10-PCS; principal; 2021-09-16)
DX: M97.01XA Periprosthetic fracture around internal prosthetic right hip joint, initial encounter (principal); S72.491A Other fracture of lower end of right femur, initial encounter for closed fracture; R45.851 Suicidal ideations; F41.9 Anxiety disorder, unspecified; F32.89 Other specified depressive episodes; E78.5 Hyperlipidemia, unspecified; Z66 Do not resuscitate; K27.9 Peptic ulcer, site unspecified, unspecified as acute or chronic, without hemorrhage or perforation; Z88.8 Allergy status to other drugs, medicaments and biological substances; E87.6 Hypokalemia; J45.990 Exercise induced bronchospasm; E11.9 Type 2 diabetes mellitus without complications; E66.9 Obesity, unspecified; Z68.38 Body mass index [BMI] 38.0-38.9, adult; D64.9 Anemia, unspecified; R09.02 Hypoxemia; Z20.822 Contact with and (suspected) exposure to COVID-19; Z96.651 Presence of right artificial knee joint; W10.8XXA Fall (on) (from) other stairs and steps, initial encounter; Y92.009 Unspecified place in unspecified non-institutional (private) residence as the place of occurrence of the external cause
CPT/HCPCS: 01360; 36415; 64450; 73560-26-RT; 73560-RT; 76000; 76000-26; 76942; 80048; 80053; 81001; 82947; 83735; 85025; 85027; 85610; 85730; 94667; 94760; 94761; 97110-GP; 97116-GP; 97162-GP; 97530-GP; A9270-GY; C1713; C1776; J0171; J0690; J0697; J1170; J1200; J1815; J1885; J2250; J2270; J2370; J2405; J2704; J2795; J3010; J3370; J7120; Q0163; U0002

== ENCOUNTER 2021-12-16 14:07 | Emergency (ER) | payer OTHER ==
[2021-12-16 14:19] VITALS: BP 102/68; PULSE 87
== END 2021-12-16 18:00 | disposition home or self-care (01) ==
LOC: JD.ED 14:07
DX: M62.81 Muscle weakness (generalized) (principal); R26.2 Difficulty in walking, not elsewhere classified; E78.00 Pure hypercholesterolemia, unspecified; I10 Essential (primary) hypertension; E11.9 Type 2 diabetes mellitus without complications; E66.9 Obesity, unspecified; Z88.5 Allergy status to narcotic agent; Z79.01 Long term (current) use of anticoagulants; Z79.84 Long term (current) use of oral hypoglycemic drugs; Z79.899 Other long term (current) drug therapy; Z68.32 Body mass index [BMI] 32.0-32.9, adult
CPT/HCPCS: 36415; 70450; 70450-26; 80053; 84443; 85025; 85652; 86140; 99285; 99285-25

== ENCOUNTER 2021-12-17 10:51 | Inpatient (IN) | payer OTHER ==
[2021-12-17] MEDS ORDERED: Sodium Chloride 0.9% 10 ML Syringe FLUSH PRN (11:10)
[2021-12-17] MEDS ORDERED: Sodium Chloride 0.9% 1,000 ML IV STA (11:55)
[2021-12-17] MEDS ORDERED: cefTRIAXone 2 GM in Sodium Chloride 0.9% 100 ML IV ONE (13:01)
[2021-12-17] MEDS ORDERED: Cyclobenzaprine 10 MG Tab PO PRN (17:31)
[2021-12-17] MEDS ORDERED: Ondansetron 4 MG Tab.DIS PO PRN (17:31)
[2021-12-17] MEDS ORDERED: Acetaminophen 325 MG Tab PO PRN (17:31)
[2021-12-17] MEDS ORDERED: Magnesium Hydroxide 400 MG/5 ML Susp 30 ML Cup PO PRN (17:31)
[2021-12-17] MEDS ORDERED: Enoxaparin 30 MG/0.3 ML Syringe SUBCUT SCH (21:00)
[2021-12-17] MEDS ORDERED: Simvastatin 40 MG Tab PO SCH (21:00)
[2021-12-17] MEDS ORDERED: Apixaban 2.5 MG Tab PO SCH (21:00)
[2021-12-17] MEDS ORDERED: Docusate Sodium 100 MG Cap PO SCH (21:00)
[2021-12-17] MEDS: atorvaSTATin 20 MG Tab PO SCH (21:08)
[2021-12-17] MEDS: QUEtiapine 25 MG Tab PO SCH (21:08)
[2021-12-18] MEDS: FLUoxetine 20 MG Cap PO SCH (08:16)
[2021-12-18] MEDS: Potassium Chloride 10 MEQ Tab.ER PO SCH (08:16)
[2021-12-18] MEDS ORDERED: buPROPion 150 MG Tab.ER PO SCH (09:00)
[2021-12-18] MEDS ORDERED: Famotidine 20 MG Tab PO SCH (09:00)
[2021-12-18] MEDS: Magnesium Oxide 400 MG Tab PO SCH ×2 (11:26→21:13)
[2021-12-18] MEDS: Phenazopyridine 95 MG Tab PO SCH ×2 (12:37→21:13)
[2021-12-18] MEDS: METFORMIN 750 MG PO SCH (12:41)
[2021-12-18] MEDS ORDERED: cefTRIAXone 2 GM in Sodium Chloride 0.9% 100 ML IV ONE (14:00)
[2021-12-18] MEDS: Enoxaparin 40 MG/0.4 ML Syringe SUBCUT SCH (21:12)
[2021-12-18] MEDS: atorvaSTATin 20 MG Tab PO SCH (21:13)
[2021-12-18] MEDS: QUEtiapine 25 MG Tab PO SCH (21:13)
[2021-12-19] MEDS: FLUoxetine 20 MG Cap PO SCH (10:35)
[2021-12-19] MEDS: Phenazopyridine 95 MG Tab PO SCH ×3 (10:36→18:00)
[2021-12-19] MEDS: Magnesium Oxide 400 MG Tab PO SCH ×2 (10:36→20:14)
[2021-12-19] MEDS: METFORMIN 750 MG PO SCH (10:36)
[2021-12-19] MEDS: Potassium Chloride 10 MEQ Tab.ER PO SCH (10:36)
[2021-12-19] MEDS ORDERED: cefTRIAXone 2 GM in Sodium Chloride 0.9% 100 ML IV ONE (15:36)
[2021-12-19] MEDS ORDERED: Levofloxacin 500 MG Tab PO SCH (17:30)
[2021-12-19] MEDS: Empagliflozin 10 MG Tab PO SCH (17:56)
[2021-12-19] MEDS: atorvaSTATin 20 MG Tab PO SCH (20:14)
[2021-12-19] MEDS: QUEtiapine 25 MG Tab PO SCH (20:14)
[2021-12-19] MEDS: Enoxaparin 40 MG/0.4 ML Syringe SUBCUT SCH (20:15)
[2021-12-20 07:50] VITALS: BP 120/72; PULSE 82
[2021-12-20] MEDS: Potassium Chloride 10 MEQ Tab.ER PO SCH (08:10)
[2021-12-20] MEDS: Empagliflozin 10 MG Tab PO SCH (08:10)
[2021-12-20] MEDS: FLUoxetine 20 MG Cap PO SCH (08:11)
[2021-12-20] MEDS: Phenazopyridine 95 MG Tab PO SCH (08:11)
[2021-12-20] MEDS: Magnesium Oxide 400 MG Tab PO SCH (08:11)
[2021-12-20] MEDS: METFORMIN 750 MG PO SCH (08:20)
[2021-12-20] MEDS ORDERED: Cephalexin 250 MG Cap PO SCH (17:00)
== END 2021-12-20 11:02 | DRG 690 ==
LOC: JD.ED 10:51 → JD.MS 15:21
PROVIDERS: ADMIT Pediatrics; ATTEND Pediatrics
DX: N30.00 Acute cystitis without hematuria (principal); F32.A Depression, unspecified; F41.9 Anxiety disorder, unspecified; E11.9 Type 2 diabetes mellitus without complications; B96.5 Pseudomonas (aeruginosa) (mallei) (pseudomallei) as the cause of diseases classified elsewhere; R29.6 Repeated falls; I10 Essential (primary) hypertension; N28.9 Disorder of kidney and ureter, unspecified; Z79.01 Long term (current) use of anticoagulants; Z79.84 Long term (current) use of oral hypoglycemic drugs; Z79.899 Other long term (current) drug therapy; Z20.822 Contact with and (suspected) exposure to COVID-19; Z96.651 Presence of right artificial knee joint; E78.00 Pure hypercholesterolemia, unspecified; J45.909 Unspecified asthma, uncomplicated; Z87.11 Personal history of peptic ulcer disease; M19.90 Unspecified osteoarthritis, unspecified site; D64.9 Anemia, unspecified; Z98.49 Cataract extraction status, unspecified eye; Z98.890 Other specified postprocedural states; Z68.33 Body mass index [BMI] 33.0-33.9, adult
CPT/HCPCS: 36415; 70544; 70544-26; 70551; 70551-26; 80053; 81001; 82397; 82550; 82947; 83605; 83735; 83970; 84075; 84080; 84100; 84443; 84484; 85025; 85610; 85730; 86140; 87040; 87086; 87088; 87186; 93005; 93010; 96365; 97110-GP; 97116-GP; 97162-GP; 97530-GP; 99284; 99285-25; A9270-GY; J0696; J1650; J3490; J7030; U0002

== ENCOUNTER 2022-04-28 08:44 | Emergency (ER) | payer OTHER ==
[2022-04-28 10:11] VITALS: BP 109/55; PULSE 77
[2022-04-28] MEDS ORDERED: Dextrose 5%-Lactated Ringers 1,000 ML IV SCH (10:15)
[2022-04-28] MEDS ORDERED: Acetaminophen 325 MG Tab PO ONE (10:17)
[2022-04-28 12:14] LABS: CORONAVIRUS COVID-19 NAA POSITIVE (NEGATIVE)
[2022-04-28 13:00] LABS: HEMOGLOBIN A1C 6.3 %
== END 2022-04-28 13:45 | disposition home or self-care (01) ==
LOC: JD.ED 08:44
DX: U07.1 COVID-19 (principal); E11.9 Type 2 diabetes mellitus without complications; I10 Essential (primary) hypertension; F41.9 Anxiety disorder, unspecified; F32.A Depression, unspecified; Z79.899 Other long term (current) drug therapy; Z88.8 Allergy status to other drugs, medicaments and biological substances
CPT/HCPCS: 0241U; 36415; 71045; 71045-26; 80053; 83036; 83735; 83880; 85025; 85610; 85730; 86140; 87651-QW; 93005; 93010; 96360; 96361; 99283; 99285-25; A9270-GY; J7121

== ENCOUNTER 2023-09-01 20:47 | Emergency (ER) | payer OTHER ==
[2023-09-01 21:03] VITALS: BP 106/58; PULSE 76
[2023-09-01 21:52] LABS: BASOPHILS ABSOLUTE AUTO 0.1 K/mm3 (0.0-0.2); BASOPHILS PERCENT AUTO 0.6 % (0.0-1.0); EOSINOPHILS ABSOLUTE AUTO 0.4 K/mm3 (0.0-0.4); EOSINOPHILS PERCENT AUTO 3.5 % (0.0-6.0); HEMATOCRIT 37.7 % (37.0-47.0); HEMOGLOBIN 12.9 gm/dl (12.0-16.0); IMMATURE GRAN ABSOLUTE AUTO 0.02 K/mm3 (0.00-0.05); IMMATURE GRAN PERCENT AUTO 0.2 % (0.0-0.4); LYMPHOCYTES ABSOLUTE AUTO 3.3 K/mm3 (1.0-4.8); MEAN CORPUSCULAR HEMOGLOBIN 30.6 pg (28.0-32.0); MEAN CORPUSCULAR HGB CONC 34.2 g/dl (32.0-36.0); MEAN CORPUSCULAR VOLUME 89.3 fl (83.0-99.0); MEAN PLATELET VOLUME 10.4 fl (9.4-12.3); MONOCYTES ABSOLUTE AUTO 0.9 K/mm3 (0.0-0.8); MONOCYTES PERCENT AUTO 7.4 % (0.0-8.0); NEUTROPHILS ABSOLUTE AUTO 7.6 K/mm3 (1.8-7.7); NEUTROPHILS PERCENT AUTO 61.3 % (41.0-71.0); PLATELET COUNT,PLT 240 K/mm3 (150-400); RED BLOOD CELL COUNT 4.22 M/mm3 (4.10-5.30); WHITE BLOOD CELL COUNT,WBC 12.37 K/mm3 (3.9-11.3)
[2023-09-01 22:22] LABS: A/G RATIO 1.3 (1-2); ALBUMIN 3.7 g/dl (3.4-5.0); BILIRUBIN TOTAL 0.5 mg/dL (0.2-1.0); BUN/CREATININE RATIO 17.3 (14-18); CALCIUM 9.9 mg/dL (8.5-10.1); CREATININE 1.5 mg/dL (0.55-1.02); EST CRCL DRUG DOSING (CG) 32.72 mL/min; MAGNESIUM 1.7 mg/dL (1.8-2.4); PROTEIN TOTAL,TP 6.5 g/dl (6.4-8.2); TSH 1.486 uIU/mL (0.358-3.74)
[2023-09-01 22:25] LABS: CORONAVIRUS COVID-19 NAA NEGATIVE (NEGATIVE); INFLUENZA A NAA NEGATIVE (NEGATIVE); RESPIRATORY SYNCYTIAL VIR NAA NEGATIVE (NEGATIVE)
[2023-09-01] MEDS ORDERED: Lactated Ringers 1,000 ML IV ONE (23:58)
[2023-09-01] MEDS ORDERED: Potassium Chloride 20 MEQ Tab.ER PO ONE (23:59)
[2023-09-02] MEDS ORDERED: Magnesium Sulfate (4.06 MEQ/ML) 5 GM/10 ML SDV IV STA
[2023-09-02] MEDS ORDERED: Ondansetron 4 MG/2 ML SDV IVPUSH ONE (00:01)
[2023-09-02] MEDS ORDERED: Carbidopa/Levodopa 25-100 MG Tab PO ONE (00:02)
[2023-09-02] MEDS ORDERED: Magnesium Sulfate/Water 50 ML IV ONE (00:15)
[2023-09-02] MEDS ORDERED: Ondansetron 4 MG/2 ML SDV ONE (01:24)
== END 2023-09-02 02:00 | disposition home or self-care (01) ==
LOC: JD.ED 20:47
DX: R11.2 Nausea with vomiting, unspecified (principal); F41.9 Anxiety disorder, unspecified; E87.6 Hypokalemia; E83.42 Hypomagnesemia; E61.1 Iron deficiency; I10 Essential (primary) hypertension; E11.9 Type 2 diabetes mellitus without complications; E66.9 Obesity, unspecified; Z90.710 Acquired absence of both cervix and uterus; Z79.899 Other long term (current) drug therapy; Z88.8 Allergy status to other drugs, medicaments and biological substances; Z68.32 Body mass index [BMI] 32.0-32.9, adult
CPT/HCPCS: 0241U; 36415; 80053; 80307; 83540; 83735; 83970; 84443; 85025; 96365; 96375; 99284; A9270; J2405; J3475; J7120

== ENCOUNTER 2023-09-08 14:01 | Emergency (ER) | payer OTHER ==
[2023-09-08] MEDS ORDERED: ALPRAZolam 1 MG Tab PO ONE (15:26)
[2023-09-08 20:14] VITALS: BP 102/65; PULSE 71
== END 2023-09-08 17:30 | disposition home or self-care (01) ==
LOC: JD.ED 14:01
DX: F41.9 Anxiety disorder, unspecified (principal); G20.B1 Parkinson's disease with dyskinesia, without mention of fluctuations; I10 Essential (primary) hypertension; E78.00 Pure hypercholesterolemia, unspecified; E11.9 Type 2 diabetes mellitus without complications; Z79.84 Long term (current) use of oral hypoglycemic drugs; Z90.710 Acquired absence of both cervix and uterus; Z88.8 Allergy status to other drugs, medicaments and biological substances; Z79.899 Other long term (current) drug therapy
CPT/HCPCS: 99283; A9270

== ENCOUNTER 2023-09-18 09:36 | Inpatient (IN) | payer OTHER ==
[2023-09-18] MEDS ORDERED: Sodium Chloride 0.9% 10 ML Syringe FLUSH PRN (09:57)
[2023-09-18] MEDS ORDERED: cefTRIAXone 2 GM in Sodium Chloride 0.9% 100 ML IV ONE (10:03)
[2023-09-18 10:44] LABS: HEMATOCRIT 37.2 % (37.0-47.0); HEMOGLOBIN 12.5 gm/dl (12.0-16.0); MEAN CORPUSCULAR HEMOGLOBIN 30.8 pg (28.0-32.0); MEAN CORPUSCULAR HGB CONC 33.6 g/dl (32.0-36.0); MEAN CORPUSCULAR VOLUME 91.6 fl (83.0-99.0); MEAN PLATELET VOLUME 10.5 fl (9.4-12.3); PLATELET COUNT,PLT 299 K/mm3 (150-400); RED BLOOD CELL COUNT 4.06 M/mm3 (4.10-5.30); WHITE BLOOD CELL COUNT,WBC 17.49 K/mm3 (3.9-11.3)
[2023-09-18] MEDS: Sodium Chloride 0.9% 1,000 ML IV SCH ×4 (10:53→20:47)
[2023-09-18 11:02] LABS: PROTHROMBIN TIME 10.7 SECONDS (9.7-12.0)
[2023-09-18 11:06] LABS: CORONAVIRUS COVID-19 NAA NEGATIVE (NEGATIVE); INFLUENZA A NAA NEGATIVE (NEGATIVE); RESPIRATORY SYNCYTIAL VIR NAA NEGATIVE (NEGATIVE)
[2023-09-18 11:11] LABS: LACTIC ACID 1.4 mmol/L (0.4-2.0)
[2023-09-18 11:14] LABS: A/G RATIO 0.9 (1-2); ALBUMIN 3.2 g/dl (3.4-5.0); ANION GAP 13.4 (5-15); BILIRUBIN TOTAL 0.8 mg/dL (0.2-1.0); BUN/CREATININE RATIO 21.2 (14-18); CREATININE 1.7 mg/dL (0.55-1.02); EST CRCL DRUG DOSING (CG) 28.87 mL/min; PROTEIN TOTAL,TP 6.6 g/dl (6.4-8.2)
[2023-09-18 11:19] LABS: BAND PERCENT MAN 0 % (0-10); BASOPHILS PERCENT MAN 0 (0.1-1.2); EOSINOPHILS PERCENT MAN 1 % (0.7-5.8); LYMPHOCYTES % ATYPICAL MANUAL 7 %; LYMPHOCYTES PERCENT MAN 14 % (20-40); MONOCYTES PERCENT MAN 8 % (2-10)
[2023-09-18 11:20] LABS: POTASSIUM,K 3.4 mEq/L (3.5-5.1)
[2023-09-18 11:21] LABS: PLATELET COUNT ESTIMATE ADEQUATE
[2023-09-18 11:23] LABS: C-REACTIVE PROTEIN 11.5 mg/dL (<1.0)
[2023-09-18 13:09] LABS: APPEARANCE,URINE CLOUDY (Clear); BILIRUBIN,URINE NEGATIVE (Negative); COLOR,URINE YELLOW (Yellow); GLUCOSE,URINE NEGATIVE (Negative); KETONES,URINE NEGATIVE (Negative); LEUKOCYTE ESTERASE,URINE TRACE (Negative); NITRITE,URINE NEGATIVE (Negative); OCCULT BLOOD,URINE NEGATIVE (Negative); PH,URINE 5.5 (5.0-8.0); PROTEIN,URINE NEGATIVE (Negative); UROBILINOGEN,URINE 0.2 (0.2-1.0)
[2023-09-18 13:52] LABS: BACTERIA,URINE MODERATE /hpf (FEW); HYALINE CASTS,URINE 0-5 /lpf (0-5); MUCUS,URINE FEW /hpf (FEW); RBC,URINE 0-5 /hpf (0-5); WBC,URINE 0-5 /hpf (0-5)
[2023-09-18] MEDS ORDERED: Piperacillin/Tazobactam 4.5 GM in Sodium Chloride 0.9% 100 ML IV ONE (13:59)
[2023-09-18] MEDS ORDERED: Albuterol 0.083% 2.5 MG/3 ML Neb Soln NEB PRN (14:40)
[2023-09-18] MEDS ORDERED: Polyethylene Glycol 3350 Powder 17 GM Packet PO PRN (14:40)
[2023-09-18] MEDS ORDERED: Ondansetron 4 MG Tab.DIS PO PRN (14:40)
[2023-09-18] MEDS ORDERED: Acetaminophen 325 MG Tab PO PRN (14:40)
[2023-09-18] MEDS ORDERED: Sennosides/Docusate Sodium 50-8.6 MG Tab PO PRN (14:40)
[2023-09-18] MEDS ORDERED: Lactated Ringers 1,000 ML IV SCH (14:45)
[2023-09-18] MEDS: Albuterol/Ipratropium 3.0-0.5 MG/3 ML Neb Soln NEB SCH ×2 (16:49→20:12)
[2023-09-18] MEDS: Insulin Lispro 100 Unit/ML 3 ML KwikPen SUBCUT SCH ×2 (17:28→23:09)
[2023-09-18] MEDS ORDERED: Methocarbamol 500 MG Tab PO PRN (20:31)
[2023-09-18] MEDS ORDERED: hydrOXYzine HCl 25 MG Tab PO PRN (20:31)
[2023-09-18] MEDS: Baclofen 10 MG Tab PO SCH (20:49)
[2023-09-18] MEDS: atorvaSTATin 20 MG Tab PO SCH (20:49)
[2023-09-18] MEDS: guaiFENesin/Dextromethorphan 100-10 MG/5 ML Soln 5 ML Cup PO SCH (20:50)
[2023-09-18] MEDS: QUEtiapine 25 MG Tab PO SCH (20:50)
[2023-09-18] MEDS: Enoxaparin 30 MG/0.3 ML Syringe SUBCUT SCH (20:51)
[2023-09-18] MEDS: Piperacillin/Tazobactam 4.5 GM in Sodium Chloride 0.9% 100 ML IV SCH ×2 (20:53→23:09)
[2023-09-18] MEDS: Carbidopa/Levodopa 25-100 MG Tab PO SCH (20:56)
[2023-09-18] MEDS ORDERED: Primidone 250 MG Tab PO SCH (21:00)
[2023-09-18] MEDS ORDERED: Gabapentin 100 MG Cap PO SCH (21:00)
[2023-09-18] MEDS: ALPRAZolam 0.5 MG Tab PO PRN (23:10)
[2023-09-19] MEDS: Benzocaine/Cetylpyridinium/Menthol Lozenge MUCMEM PRN ×3 (04:33→20:02)
[2023-09-19 05:29] LABS: BASOPHILS ABSOLUTE AUTO 0.1 K/mm3 (0.0-0.2); BASOPHILS PERCENT AUTO 0.6 % (0.0-1.0); EOSINOPHILS ABSOLUTE AUTO 0.3 K/mm3 (0.0-0.4); EOSINOPHILS PERCENT AUTO 2.6 % (0.0-6.0); HEMATOCRIT 30.2 % (37.0-47.0); IMMATURE GRAN ABSOLUTE AUTO 0.03 K/mm3 (0.00-0.05); IMMATURE GRAN PERCENT AUTO 0.3 % (0.0-0.4); LYMPHOCYTES ABSOLUTE AUTO 3.4 K/mm3 (1.0-4.8); LYMPHOCYTES PERCENT AUTO 31.3 % (24.0-44.0); MEAN CORPUSCULAR HGB CONC 34.1 g/dl (32.0-36.0); MEAN PLATELET VOLUME 10.9 fl (9.4-12.3); MONOCYTES ABSOLUTE AUTO 0.9 K/mm3 (0.0-0.8); MONOCYTES PERCENT AUTO 8.1 % (0.0-8.0); NEUTROPHILS ABSOLUTE AUTO 6.2 K/mm3 (1.8-7.7); NEUTROPHILS PERCENT AUTO 57.1 % (41.0-71.0); PLATELET COUNT,PLT 247 K/mm3 (150-400); RED BLOOD CELL COUNT 3.32 M/mm3 (4.10-5.30); WHITE BLOOD CELL COUNT,WBC 10.92 K/mm3 (3.9-11.3)
[2023-09-19 05:46] LABS: HEMOGLOBIN 10.3 gm/dl (12.0-16.0)
[2023-09-19 05:58] LABS: A/G RATIO 0.9 (1-2); ALBUMIN 2.5 g/dl (3.4-5.0); ANION GAP 14.3 (5-15); BILIRUBIN TOTAL 0.5 mg/dL (0.2-1.0); C-REACTIVE PROTEIN 7.4 mg/dL (<1.0); CALCIUM 8.8 mg/dL (8.5-10.1); CREATININE 1.2 mg/dL (0.55-1.02); EST CRCL DRUG DOSING (CG) 40.9 mL/min; MAGNESIUM 1.3 mg/dL (1.8-2.4); POTASSIUM,K 3.3 mEq/L (3.5-5.1); PROTEIN TOTAL,TP 5.2 g/dl (6.4-8.2)
[2023-09-19] MEDS: guaiFENesin/Dextromethorphan 100-10 MG/5 ML Soln 5 ML Cup PO SCH ×3 (06:05→20:01)
[2023-09-19] MEDS: Piperacillin/Tazobactam 4.5 GM in Sodium Chloride 0.9% 100 ML IV SCH ×3 (06:05→21:41)
[2023-09-19] MEDS: Sodium Chloride 0.9% 1,000 ML IV SCH ×2 (06:08→16:15)
[2023-09-19] MEDS: Albuterol/Ipratropium 3.0-0.5 MG/3 ML Neb Soln NEB SCH ×4 (06:12→20:42)
[2023-09-19] MEDS: Insulin Lispro 100 Unit/ML 3 ML KwikPen SUBCUT SCH ×4 (08:02→21:07)
[2023-09-19] MEDS: Carbidopa/Levodopa 25-100 MG Tab PO SCH ×3 (08:58→20:09)
[2023-09-19] MEDS: ALPRAZolam 0.5 MG Tab PO PRN (08:58)
[2023-09-19] MEDS: Baclofen 10 MG Tab PO SCH ×3 (08:58→20:02)
[2023-09-19] MEDS: FLUoxetine 20 MG Cap PO SCH (08:58)
[2023-09-19] MEDS ORDERED: Enoxaparin 40 MG/0.4 ML Syringe SUBCUT SCH (09:00)
[2023-09-19] MEDS ORDERED: Potassium Chloride 10 MEQ in Premix Bag 1 BAG IV ONE ×2 (10:30→17:34)
[2023-09-19] MEDS ORDERED: Magnesium Sulfate/Water 2 GM in Premix Bag 1 BAG IV ONE (11:30)
[2023-09-19] MEDS: Ondansetron 4 MG/2 ML SDV IV PRN (12:41)
[2023-09-19] MEDS: Enoxaparin 30 MG/0.3 ML Syringe SUBCUT SCH (20:01)
[2023-09-19] MEDS: atorvaSTATin 20 MG Tab PO SCH (20:03)
[2023-09-19] MEDS: QUEtiapine 25 MG Tab PO SCH (20:04)
[2023-09-20] MEDS: Ondansetron 4 MG/2 ML SDV IV PRN ×2 (01:29→10:34)
[2023-09-20] MEDS: Benzocaine/Cetylpyridinium/Menthol Lozenge MUCMEM PRN (01:29)
[2023-09-20] MEDS: Sodium Chloride 0.9% 1,000 ML IV SCH ×3 (01:47→23:30)
[2023-09-20] MEDS: Piperacillin/Tazobactam 4.5 GM in Sodium Chloride 0.9% 100 ML IV SCH ×3 (04:55→14:29)
[2023-09-20 05:40] LABS: HEMATOCRIT 29.8 % (37.0-47.0); HEMOGLOBIN 10.2 gm/dl (12.0-16.0); MEAN CORPUSCULAR HEMOGLOBIN 30.9 pg (28.0-32.0); MEAN CORPUSCULAR HGB CONC 34.2 g/dl (32.0-36.0); MEAN CORPUSCULAR VOLUME 90.3 fl (83.0-99.0); MEAN PLATELET VOLUME 10.5 fl (9.4-12.3); PLATELET COUNT,PLT 273 K/mm3 (150-400)
[2023-09-20 05:46] LABS: ANION GAP 15.2 (5-15); BUN/CREATININE RATIO 13.8 (14-18); CALCIUM 9.3 mg/dL (8.5-10.1); CREATININE 0.8 mg/dL (0.55-1.02); EST CRCL DRUG DOSING (CG) 61.35 mL/min; MAGNESIUM 1.6 mg/dL (1.8-2.4); POTASSIUM,K 3.2 mEq/L (3.5-5.1)
[2023-09-20] MEDS: Albuterol/Ipratropium 3.0-0.5 MG/3 ML Neb Soln NEB SCH ×4 (06:57→20:20)
[2023-09-20] MEDS: guaiFENesin/Dextromethorphan 100-10 MG/5 ML Soln 5 ML Cup PO SCH ×3 (07:21→14:34)
[2023-09-20] MEDS: Insulin Lispro 100 Unit/ML 3 ML KwikPen SUBCUT SCH ×3 (07:22→17:28)
[2023-09-20] MEDS: FLUoxetine 20 MG Cap PO SCH ×2 (07:46→08:00)
[2023-09-20] MEDS: Baclofen 10 MG Tab PO SCH ×3 (07:49→14:31)
[2023-09-20] MEDS ORDERED: Magnesium Sulfate (4.06 MEQ/ML) 5 GM/10 ML SDV IV ONE (08:32)
[2023-09-20] MEDS ORDERED: Potassium Chloride 20 MEQ Tab.ER PO ONE (08:32)
[2023-09-20] MEDS ORDERED: Magnesium Sulfate/Water 2 GM in Premix Bag 1 BAG IV ONE (08:45)
[2023-09-20] MEDS: Carbidopa/Levodopa 25-100 MG Tab PO SCH ×3 (09:25→20:58)
[2023-09-21] MEDS: Insulin Lispro 100 Unit/ML 3 ML KwikPen SUBCUT SCH ×3 (02:35→14:19)
[2023-09-21] MEDS: Baclofen 10 MG Tab PO SCH ×2 (02:36→09:00)
[2023-09-21] MEDS: Enoxaparin 30 MG/0.3 ML Syringe SUBCUT SCH (02:36)
[2023-09-21] MEDS: atorvaSTATin 20 MG Tab PO SCH (02:36)
[2023-09-21] MEDS: Piperacillin/Tazobactam 4.5 GM in Sodium Chloride 0.9% 100 ML IV SCH ×2 (02:37→06:11)
[2023-09-21] MEDS: guaiFENesin/Dextromethorphan 100-10 MG/5 ML Soln 5 ML Cup PO SCH ×2 (02:37→06:11)
[2023-09-21] MEDS: QUEtiapine 25 MG Tab PO SCH (02:37)
[2023-09-21 05:43] LABS: ANION GAP 13.1 (5-15); BUN/CREATININE RATIO 7.1 (14-18); CREATININE 0.7 mg/dL (0.55-1.02); EST CRCL DRUG DOSING (CG) 70.11 mL/min; POTASSIUM,K 3.1 mEq/L (3.5-5.1)
[2023-09-21] MEDS: Albuterol/Ipratropium 3.0-0.5 MG/3 ML Neb Soln NEB SCH ×2 (06:21→08:59)
[2023-09-21] MEDS ORDERED: Potassium Chloride 20 MEQ Tab.ER PO ONE (08:17)
[2023-09-21 08:27] LABS: BASOPHILS ABSOLUTE AUTO 0.1 K/mm3 (0.0-0.2); BASOPHILS PERCENT AUTO 0.7 % (0.0-1.0); EOSINOPHILS ABSOLUTE AUTO 0.4 K/mm3 (0.0-0.4); EOSINOPHILS PERCENT AUTO 3.4 % (0.0-6.0); HEMATOCRIT 29.9 % (37.0-47.0); HEMOGLOBIN 10.1 gm/dl (12.0-16.0); IMMATURE GRAN ABSOLUTE AUTO 0.07 K/mm3 (0.00-0.05); IMMATURE GRAN PERCENT AUTO 0.6 % (0.0-0.4); LYMPHOCYTES ABSOLUTE AUTO 2.7 K/mm3 (1.0-4.8); LYMPHOCYTES PERCENT AUTO 24.6 % (24.0-44.0); MEAN CORPUSCULAR HEMOGLOBIN 30.8 pg (28.0-32.0); MEAN CORPUSCULAR HGB CONC 33.8 g/dl (32.0-36.0); MEAN CORPUSCULAR VOLUME 91.2 fl (83.0-99.0); MEAN PLATELET VOLUME 10.9 fl (9.4-12.3); MONOCYTES ABSOLUTE AUTO 0.8 K/mm3 (0.0-0.8); MONOCYTES PERCENT AUTO 6.8 % (0.0-8.0); NEUTROPHILS PERCENT AUTO 63.9 % (41.0-71.0); PLATELET COUNT,PLT 278 K/mm3 (150-400); RED BLOOD CELL COUNT 3.28 M/mm3 (4.10-5.30); WHITE BLOOD CELL COUNT,WBC 11.01 K/mm3 (3.9-11.3)
[2023-09-21] MEDS ORDERED: Amoxicillin/Clavulanate K 875-125 MG Tab PO ONE (08:31)
[2023-09-21] MEDS: Carbidopa/Levodopa 25-100 MG Tab PO SCH (09:00)
[2023-09-21] MEDS: FLUoxetine 20 MG Cap PO SCH (09:00)
[2023-09-21 09:20] VITALS: BP 134/93; PULSE 75
[2023-09-21] MEDS: ALPRAZolam 0.5 MG Tab PO PRN (11:22)
[2023-09-21] MEDS ORDERED: Enoxaparin 40 MG/0.4 ML Syringe SUBCUT SCH (21:00)
== END 2023-09-21 13:36 | disposition home or self-care (01) | DRG 871 ==
LOC: JD.ED 09:36 → JD.MS 14:40
PROVIDERS: ADMIT Internal Medicine; ATTEND Hospitalist
DX: A41.9 Sepsis, unspecified organism (principal); J18.9 Pneumonia, unspecified organism; R65.21 Severe sepsis with septic shock; J98.11 Atelectasis; I31.39 Other pericardial effusion (noninflammatory); Z66 Do not resuscitate; D72.829 Elevated white blood cell count, unspecified; J45.909 Unspecified asthma, uncomplicated; E11.9 Type 2 diabetes mellitus without complications; I10 Essential (primary) hypertension; F41.9 Anxiety disorder, unspecified; F32.A Depression, unspecified; E87.6 Hypokalemia; G20.B1 Parkinson's disease with dyskinesia, without mention of fluctuations; E78.00 Pure hypercholesterolemia, unspecified; E66.9 Obesity, unspecified; E83.42 Hypomagnesemia; D64.9 Anemia, unspecified; M19.90 Unspecified osteoarthritis, unspecified site; R09.02 Hypoxemia; Z68.29 Body mass index [BMI] 29.0-29.9, adult; Z11.52 Encounter for screening for COVID-19; Z79.84 Long term (current) use of oral hypoglycemic drugs; Z90.710 Acquired absence of both cervix and uterus; Z98.890 Other specified postprocedural states; Z83.3 Family history of diabetes mellitus; Z82.49 Family history of ischemic heart disease and other diseases of the circulatory system; Z81.8 Family history of other mental and behavioral disorders; Z88.8 Allergy status to other drugs, medicaments and biological substances; Z98.49 Cataract extraction status, unspecified eye; Z79.899 Other long term (current) drug therapy
CPT/HCPCS: 0241U; 36415; 71045; 71045-26; 71250; 71250-26; 80048; 80053; 81001; 82947; 83605; 83690; 83735; 85007; 85025; 85027; 85610; 86140; 86738; 87040; 87086; 94640; 94667; 94668; 94760; 94761; 96361; 96365; 96375; 99285; 99285-25; A9270-GY; J0696; J1650; J2405; J2543; J3475; J3480; J3490; J7030; J7620-GY

== ENCOUNTER 2023-10-07 09:04 | Emergency (ER) | payer OTHER ==
[2023-10-07] MEDS ORDERED: Sodium Chloride 0.9% 10 ML Syringe FLUSH PRN ×2 (09:22)
[2023-10-07] MEDS ORDERED: Sodium Chloride 0.9% 2,500 ML IV ONE (09:22)
[2023-10-07] MEDS ORDERED: cefTRIAXone 2 GM in Sodium Chloride 0.9% 100 ML IV ONE (09:27)
[2023-10-07 09:29] VITALS: BP 75/59; PULSE 66
[2023-10-07 09:42] LABS: HEMATOCRIT 35.9 % (37.0-47.0); HEMOGLOBIN 11.5 gm/dl (12.0-16.0); MEAN CORPUSCULAR HEMOGLOBIN 30.7 pg (28.0-32.0); MEAN PLATELET VOLUME 10.6 fl (9.4-12.3); PLATELET COUNT,PLT 281 K/mm3 (150-400); RED BLOOD CELL COUNT 3.74 M/mm3 (4.10-5.30); WHITE BLOOD CELL COUNT,WBC 13.33 K/mm3 (3.9-11.3)
[2023-10-07 10:06] LABS: LACTIC ACID 1.7 mmol/L (0.4-2.0)
[2023-10-07 10:14] LABS: A/G RATIO 1.2 (1-2); ALANINE AMINOTRANSFERASE,ALT 8 U/L (14-59); ALBUMIN 3.2 g/dl (3.4-5.0); ALKALINE PHOSPHATASE 140 U/L (46-116); ANION GAP 13.4 (5-15); ASPARTATE AMNIOTRANSFERASE,AST 19 U/L (15-37); BILIRUBIN TOTAL 0.5 mg/dL (0.2-1.0); BLOOD UREA NITROGEN,BUN 22 mg/dL (7-18); C-REACTIVE PROTEIN <0.2 mg/dL (<1.0); CALCIUM 9.8 mg/dL (8.5-10.1); CARBON DIOXIDE,CO2 27 mEq/L (21-32); CHLORIDE,CL 107 mEq/L (98-107); CREATININE 1.1 mg/dL (0.55-1.02); EST CRCL DRUG DOSING (CG) 44.62 mL/min; ESTIMATED GFR 56 mL/min (>60); GLUCOSE RANDOM 121 mg/dL (70-99); POTASSIUM,K 4.4 mEq/L (3.5-5.1); PROTEIN TOTAL,TP 5.9 g/dl (6.4-8.2); SODIUM,NA 143 mEq/L (136-145)
[2023-10-07 10:18] LABS: INR 1.01; PROTHROMBIN TIME 10.8 SECONDS (9.7-12.0)
[2023-10-07 10:19] LABS: TSH 1.426 uIU/mL (0.358-3.74)
[2023-10-07 10:56] LABS: BAND PERCENT MAN 9 % (0-10); BASOPHILS PERCENT MAN 0 (0.1-1.2); EOSINOPHILS PERCENT MAN 1 % (0.7-5.8); LYMPHOCYTES % ATYPICAL MANUAL 0 %; LYMPHOCYTES PERCENT MAN 26 % (20-40); MONOCYTES PERCENT MAN 0 % (2-10)
[2023-10-07 10:57] LABS: PLATELET COUNT ESTIMATE ADEQUATE
[2023-10-07 11:09] LABS: APPEARANCE,URINE CLEAR (Clear); BILIRUBIN,URINE NEGATIVE (Negative); COLOR,URINE YELLOW (Yellow); GLUCOSE,URINE NEGATIVE (Negative); KETONES,URINE NEGATIVE (Negative); LEUKOCYTE ESTERASE,URINE NEGATIVE (Negative); NITRITE,URINE NEGATIVE (Negative); OCCULT BLOOD,URINE NEGATIVE (Negative); PROTEIN,URINE NEGATIVE (Negative); UROBILINOGEN,URINE 0.2 (0.2-1.0)
[2023-10-07] MEDS ORDERED: Iopamidol 755 Mg/ML 100 ML Bottle IVPUSH ONE (11:19)
[2023-10-07] MEDS ORDERED: Sodium Chloride 0.9% 100 ML IV SCH (11:30)
[2023-10-07] MEDS ORDERED: Aspirin 81 MG Tab.Chew PO ONE (14:45)
== END 2023-10-07 15:34 | disposition other institution (70) ==
LOC: JD.ED 09:04
DX: I63.9 Cerebral infarction, unspecified (principal); I95.9 Hypotension, unspecified; I10 Essential (primary) hypertension; J45.909 Unspecified asthma, uncomplicated; E11.9 Type 2 diabetes mellitus without complications; Z88.8 Allergy status to other drugs, medicaments and biological substances; Z79.2 Long term (current) use of antibiotics; Z79.899 Other long term (current) drug therapy
CPT/HCPCS: 36415; 51701; 70450; 70450-26; 70551; 70551-26; 71045; 71045-26; 71275; 71275-26; 80053; 81003; 82947; 83605; 84443; 85007; 85027; 85610; 86140; 87040; 93005; 93010; 96361; 96365; 99284; 99285-25; A9270-GY; C1758; J0696; J3490; J7030; Q9967

== ENCOUNTER 2024-08-31 09:16 | Day surgery (SDC) | payer OTHER ==
[~2024-08-31 09:16] MED LIST changes: -Acetaminophen 325 MG Tab PO SCH; -Cyclobenzaprine 10 MG Tab PO PRN; -Dexamethasone 4 MG/ML 5 ML MDV ONE; -Dexmedetomidine 200 MCG/2 ML SDV ONE; -HYDROmorphone 0.5 MG/0.5 ML Syringe IVPUSH PRN; -Lactated Ringers 1,000 ML IV SCH; -Lidocaine 1%/Sod Bicarbonate in NS 8.4% 1 ML Syringe IDERM PRN; -Midazolam 1 MG/ML 2 ML SDV IVPUSH PRN; -Midazolam 1 MG/ML 2 ML SDV ONE; -Ondansetron 4 MG/2 ML SDV IVPUSH PRN; -Pregabalin 25 MG Cap PO SCH; -Propofol 200 MG/20 ML SDV ONE; -Ropivacaine 0.5% 5 MG/ML 30 ML SDV ONE; +Sodium Chloride 0.9% 10 ML Syringe FLUSH SCH; -ceFAZolin 1 GM Vial ONE; -fentaNYL 100 MCG/2 ML SDV IVPUSH PRN; -fentaNYL 100 MCG/2 ML SDV ONE; -oxyCODONE 5 MG Tab PO PRN; -oxyCODONE ER 10 MG TAB.ER PO SCH
[2024-08-31] MEDS: Lactated Ringers 1,000 ML IV SCH (09:45)
[2024-08-31] MEDS ORDERED: Propofol 200 MG/20 ML SDV ONE ×3 (10:30→12:45)
[2024-08-31] MEDS ORDERED: fentaNYL 100 MCG/2 ML SDV ONE (10:31)
[2024-08-31] MEDS ORDERED: Midazolam 1 MG/ML 2 ML SDV ONE (10:31)
[2024-08-31] MEDS ORDERED: ceFAZolin 2 GM Vial ONE (10:32)
[2024-08-31] MEDS ORDERED: ePHEDrine 50 MG/ML SDV ONE (11:36)
[2024-08-31] MEDS ORDERED: Phenylephrine 1% 10 MG/ML SDV ONE (11:58)
[2024-08-31] MEDS ORDERED: Dexamethasone 4 MG/ML 5 ML MDV ONE (12:06)
[2024-08-31] MEDS ORDERED: Ropivacaine 0.5% 5 MG/ML 30 ML SDV ONE (12:06)
[2024-08-31] MEDS ORDERED: dexmedeTOMIDine HCl 200 MCG/2 ML SDV ONE (12:06)
[2024-08-31] MEDS ORDERED: Lactated Ringers 1,000 ML ONE (12:34)
[2024-08-31] MEDS: Morphine 8 MG, EPINEPHrine 0.3 MG, Cefuroxime 750 MG, Ketorolac 30 MG, Sodium Chloride ... PRN (13:02)
[2024-08-31] MEDS: Tranexamic Acid 1,000 MG/10 ML Vial ONE (13:10)
[2024-08-31] MEDS: VANCOmycin 1 GM SDV ONE (13:10)
[2024-08-31] MEDS ORDERED: HYDROmorphone 0.5 MG/0.5 ML Syringe IVPUSH PRN (14:02)
[2024-08-31] MEDS ORDERED: fentaNYL 100 MCG/2 ML SDV IVPUSH PRN (14:02)
[2024-08-31] MEDS ORDERED: Ondansetron 4 MG/2 ML SDV IVPUSH PRN (14:02)
[2024-08-31] MEDS ORDERED: Acetaminophen/HYDROcodone 325-5 MG Tab PO PRN (14:12)
[2024-08-31 18:28] VITALS: BP 111/65; PULSE 87
== END 2024-08-31 16:45 | disposition home or self-care (01) ==
LOC: JD.SDS 09:16
PROVIDERS: ATTEND Orthopaedic Surgery
DX: M17.0 Bilateral primary osteoarthritis of knee (principal); G20.A1 Parkinson's disease without dyskinesia, without mention of fluctuations; I10 Essential (primary) hypertension; E11.9 Type 2 diabetes mellitus without complications; F32.A Depression, unspecified; E78.00 Pure hypercholesterolemia, unspecified; Z79.84 Long term (current) use of oral hypoglycemic drugs; Z79.899 Other long term (current) drug therapy
CPT/HCPCS: 0055T; 27447; 64447; 73560; 97116; 97161; J0171; J0690; J0697; J1100; J1885; J2250; J2272; J2371; J2704; J2795; J3010; J7120; J3490

== ENCOUNTER 2025-03-24 19:05 | Emergency (ER) | payer OTHER ==
[2025-03-24 19:26] VITALS: PULSE 91
[2025-03-24] MEDS: Ketorolac 30 MG/ML SDV IM ONE (20:14)
[2025-03-25 01:06] VITALS: BP 141/93
== END 2025-03-25 00:45 | disposition left against medical advice (07) ==
LOC: JD.ED 19:05
DX: S72.141A Displaced intertrochanteric fracture of right femur, initial encounter for closed fracture (principal); I10 Essential (primary) hypertension; E78.00 Pure hypercholesterolemia, unspecified; E11.9 Type 2 diabetes mellitus without complications; Z90.710 Acquired absence of both cervix and uterus; Z88.8 Allergy status to other drugs, medicaments and biological substances; Z79.899 Other long term (current) drug therapy; X58.XXXA Exposure to other specified factors, initial encounter
CPT/HCPCS: 72170; 73552; 93971; 96372; 99284; A9270; J1885

== ENCOUNTER 2025-03-27 08:14 | Inpatient (IN) | payer OTHER ==
[2025-03-27] MEDS: Ondansetron 4 MG/2 ML SDV IVPUSH ONE (08:45)
[2025-03-27] MEDS: fentaNYL 100 MCG/2 ML SDV IVPUSH PRN (08:48)
[2025-03-27 09:01] LABS: BASOPHILS ABSOLUTE AUTO 0.1 K/mm3 (0.0-0.2); BASOPHILS PERCENT AUTO 0.6 % (0.0-1.0); EOSINOPHILS ABSOLUTE AUTO 0.4 K/mm3 (0.0-0.4); EOSINOPHILS PERCENT AUTO 4.7 % (0.0-6.0); IMMATURE GRAN ABSOLUTE AUTO 0.03 K/mm3 (0.00-0.05); IMMATURE GRAN PERCENT AUTO 0.3 % (0.0-0.4); LYMPHOCYTES ABSOLUTE AUTO 2.3 K/mm3 (1.0-4.8); LYMPHOCYTES PERCENT AUTO 24.7 % (24.0-44.0); MEAN PLATELET VOLUME 10.8 fl (9.4-12.3); MONOCYTES ABSOLUTE AUTO 0.7 K/mm3 (0.0-0.8); MONOCYTES PERCENT AUTO 6.9 % (0.0-8.0); NEUTROPHILS ABSOLUTE AUTO 5.9 K/mm3 (1.8-7.7); NEUTROPHILS PERCENT AUTO 62.8 % (41.0-71.0); NRBC ABSOLUTE 0.00 (0.00-0.02); NRBC PERCENT 0.0 % (0.0-0.2); PLATELET COUNT,PLT 239 K/mm3 (150-400); RED BLOOD CELL COUNT 4.40 M/mm3 (4.10-5.30); WHITE BLOOD CELL COUNT,WBC 9.43 K/mm3 (3.9-11.3)
[2025-03-27 09:18] LABS: A/G RATIO 1.3 (1-2); ALANINE AMINOTRANSFERASE,ALT 28.0 U/L (14-59); ASPARTATE AMNIOTRANSFERASE,AST 34.0 U/L (15-37); BILIRUBIN TOTAL 0.7 mg/dL (0.2-1.0); BLOOD UREA NITROGEN,BUN 22.0 mg/dL (7-18); CARBON DIOXIDE,CO2 32.0 mEq/L (21-32); CHLORIDE,CL 106.0 mEq/L (98-107); CREATINE KINASE,CK 326.0 U/L (26-192); CREATININE 0.8 mg/dL (0.55-1.02); EST CRCL DRUG DOSING (CG) 60.54 mL/min; ESTIMATED GFR 82.0 mL/min (>60); GLUCOSE RANDOM 107.0 mg/dL (70-99); POTASSIUM,K 3.8 mEq/L (3.5-5.1); PROTEIN TOTAL,TP 6.4 g/dl (6.4-8.2); SODIUM,NA 145.0 mEq/L (136-145)
[2025-03-27] MEDS: LORazepam 2 MG/ML SDV IVPUSH ONE (09:57)
[2025-03-27] MEDS ORDERED: Ondansetron 4 MG/2 ML SDV IV PRN (11:34)
[2025-03-27 12:09] LABS: INR 0.95
[2025-03-27 12:10] LABS: PTT,PARTIAL THROMBOPLSTIN TIME 24.2 SECONDS (21.7-31.4)
[2025-03-27] MEDS: Heparin Sodium 5,000 Units/ML Vial SUBCUT SCH (13:00)
[2025-03-27] MEDS: Lactated Ringers 1,000 ML IV SCH (13:00)
[2025-03-27] MEDS: Insulin Lispro 100 Unit/ML 3 ML KwikPen SUBCUT SCH (17:30)
[2025-03-28 04:34] LABS: BASOPHILS ABSOLUTE AUTO 0.1 K/mm3 (0.0-0.2); BASOPHILS PERCENT AUTO 0.7 % (0.0-1.0); EOSINOPHILS ABSOLUTE AUTO 0.4 K/mm3 (0.0-0.4); EOSINOPHILS PERCENT AUTO 6.1 % (0.0-6.0); IMMATURE GRAN ABSOLUTE AUTO 0.01 K/mm3 (0.00-0.05); IMMATURE GRAN PERCENT AUTO 0.1 % (0.0-0.4); LYMPHOCYTES ABSOLUTE AUTO 2.3 K/mm3 (1.0-4.8); LYMPHOCYTES PERCENT AUTO 33.8 % (24.0-44.0); MEAN PLATELET VOLUME 11.0 fl (9.4-12.3); MONOCYTES ABSOLUTE AUTO 0.7 K/mm3 (0.0-0.8); MONOCYTES PERCENT AUTO 9.7 % (0.0-8.0); NEUTROPHILS ABSOLUTE AUTO 3.4 K/mm3 (1.8-7.7); NEUTROPHILS PERCENT AUTO 49.6 % (41.0-71.0); NRBC ABSOLUTE 0.00 (0.00-0.02); NRBC PERCENT 0.0 % (0.0-0.2); PLATELET COUNT,PLT 206 K/mm3 (150-400); RED BLOOD CELL COUNT 3.75 M/mm3 (4.10-5.30); WHITE BLOOD CELL COUNT,WBC 6.93 K/mm3 (3.9-11.3)
[2025-03-28 05:06] LABS: A/G RATIO 1.2 (1-2); ALANINE AMINOTRANSFERASE,ALT 23.0 U/L (14-59); ASPARTATE AMNIOTRANSFERASE,AST 28.0 U/L (15-37); BILIRUBIN TOTAL 0.6 mg/dL (0.2-1.0); BLOOD UREA NITROGEN,BUN 16.0 mg/dL (7-18); CARBON DIOXIDE,CO2 31.0 mEq/L (21-32); CHLORIDE,CL 105.0 mEq/L (98-107); CREATINE KINASE,CK 149.0 U/L (26-192); CREATININE 0.7 mg/dL (0.55-1.02); EST CRCL DRUG DOSING (CG) 69.19 mL/min; ESTIMATED GFR 96.0 mL/min (>60); GLUCOSE RANDOM 81.0 mg/dL (70-99); POTASSIUM,K 3.4 mEq/L (3.5-5.1); PROTEIN TOTAL,TP 5.3 g/dl (6.4-8.2); SODIUM,NA 141.0 mEq/L (136-145)
[2025-03-28] MEDS: Magnesium Sulfate 2 GM/50 mL 2 GM in Premix Bag 1 BAG IV ONE (06:37)
[2025-03-28] MEDS ORDERED: Midazolam 1 MG/ML 2 ML SDV ONE (10:34)
[2025-03-28] MEDS ORDERED: propofoL 500 MG/50 ML 50 ML ONE (10:34)
[2025-03-28] MEDS ORDERED: Ketamine HCL/NACL, ISO-OSM 50 MG/5 ML Syringe ONE (10:35)
[2025-03-28] MEDS ORDERED: fentaNYL 250 MCG/5 ML SDV ONE (10:35)
[2025-03-28] MEDS ORDERED: Dexamethasone 4 MG/ML 5 ML MDV ONE (10:40)
[2025-03-28] MEDS ORDERED: Ondansetron 4 MG/2 ML SDV ONE (10:40)
[2025-03-28] MEDS ORDERED: Lactated Ringers 1,000 ML ONE (11:33)
[2025-03-28] MEDS ORDERED: ePHEDrine 50 MG/ML SDV ONE (11:54)
[2025-03-28] MEDS ORDERED: Phenylephrine 1% 10 MG/ML SDV ONE (11:58)
[2025-03-28] MEDS ORDERED: Propofol 200 MG/20 ML SDV ONE (12:24)
[2025-03-28] MEDS: fentaNYL 100 MCG/2 ML SDV IVPUSH PRN (13:45)
[2025-03-28] MEDS: Ketorolac 30 MG/ML SDV IVPUSH ONE (14:20)
[2025-03-28] MEDS: Acetaminophen Soln 650 MG/20.3 ML UD Cup PO ONE (14:28)
[2025-03-28] MEDS ORDERED: dexmedeTOMIDine HCl 200 MCG/2 ML SDV ONE (14:40)
[2025-03-29 04:28] LABS: BASOPHILS ABSOLUTE AUTO 0.0 K/mm3 (0.0-0.2); BASOPHILS PERCENT AUTO 0.1 % (0.0-1.0); EOSINOPHILS ABSOLUTE AUTO 0.0 K/mm3 (0.0-0.4); EOSINOPHILS PERCENT AUTO 0.1 % (0.0-6.0); IMMATURE GRAN ABSOLUTE AUTO 0.05 K/mm3 (0.00-0.05); IMMATURE GRAN PERCENT AUTO 0.4 % (0.0-0.4); LYMPHOCYTES ABSOLUTE AUTO 1.0 K/mm3 (1.0-4.8); LYMPHOCYTES PERCENT AUTO 8.8 % (24.0-44.0); MEAN PLATELET VOLUME 11.1 fl (9.4-12.3); MONOCYTES ABSOLUTE AUTO 0.9 K/mm3 (0.0-0.8); MONOCYTES PERCENT AUTO 7.7 % (0.0-8.0); NEUTROPHILS ABSOLUTE AUTO 9.3 K/mm3 (1.8-7.7); NEUTROPHILS PERCENT AUTO 82.9 % (41.0-71.0); NRBC ABSOLUTE 0.00 (0.00-0.02); NRBC PERCENT 0.0 % (0.0-0.2); PLATELET COUNT,PLT 187 K/mm3 (150-400); RED BLOOD CELL COUNT 3.35 M/mm3 (4.10-5.30); WHITE BLOOD CELL COUNT,WBC 11.19 K/mm3 (3.9-11.3)
[2025-03-29 05:06] LABS: A/G RATIO 1.1 (1-2); ALANINE AMINOTRANSFERASE,ALT 22.0 U/L (14-59); ASPARTATE AMNIOTRANSFERASE,AST 27.0 U/L (15-37); BILIRUBIN TOTAL 0.3 mg/dL (0.2-1.0); BLOOD UREA NITROGEN,BUN 23.0 mg/dL (7-18); CARBON DIOXIDE,CO2 29.0 mEq/L (21-32); CHLORIDE,CL 105.0 mEq/L (98-107); CREATININE 1.0 mg/dL (0.55-1.02); EST CRCL DRUG DOSING (CG) 48.43 mL/min; ESTIMATED GFR 63.0 mL/min (>60); GLUCOSE RANDOM 140.0 mg/dL (70-99); POTASSIUM,K 4.4 mEq/L (3.5-5.1); PROTEIN TOTAL,TP 5.3 g/dl (6.4-8.2); SODIUM,NA 139.0 mEq/L (136-145)
[2025-03-29] MEDS: Sennosides/Docusate Sodium 50-8.6 MG Tab PO SCH (09:59)
[2025-03-29] MEDS: Acetaminophen/HYDROcodone 325-5 MG Tab PO PRN (18:13)
[2025-03-30 07:08] LABS: BASOPHILS ABSOLUTE AUTO 0.0 K/mm3 (0.0-0.2); BASOPHILS PERCENT AUTO 0.4 % (0.0-1.0); EOSINOPHILS ABSOLUTE AUTO 0.4 K/mm3 (0.0-0.4); EOSINOPHILS PERCENT AUTO 4.2 % (0.0-6.0); IMMATURE GRAN ABSOLUTE AUTO 0.02 K/mm3 (0.00-0.05); IMMATURE GRAN PERCENT AUTO 0.2 % (0.0-0.4); LYMPHOCYTES ABSOLUTE AUTO 3.0 K/mm3 (1.0-4.8); LYMPHOCYTES PERCENT AUTO 29.6 % (24.0-44.0); MEAN PLATELET VOLUME 10.8 fl (9.4-12.3); MONOCYTES ABSOLUTE AUTO 0.7 K/mm3 (0.0-0.8); MONOCYTES PERCENT AUTO 7.3 % (0.0-8.0); NEUTROPHILS ABSOLUTE AUTO 5.9 K/mm3 (1.8-7.7); NEUTROPHILS PERCENT AUTO 58.3 % (41.0-71.0); NRBC ABSOLUTE 0.00 (0.00-0.02); NRBC PERCENT 0.0 % (0.0-0.2); PLATELET COUNT,PLT 201 K/mm3 (150-400); RED BLOOD CELL COUNT 3.32 M/mm3 (4.10-5.30); WHITE BLOOD CELL COUNT,WBC 10.11 K/mm3 (3.9-11.3)
[2025-03-30 08:11] LABS: A/G RATIO 1.2 (1-2); ALANINE AMINOTRANSFERASE,ALT 23.0 U/L (14-59); ASPARTATE AMNIOTRANSFERASE,AST 29.0 U/L (15-37); BILIRUBIN TOTAL 0.5 mg/dL (0.2-1.0); BLOOD UREA NITROGEN,BUN 25.0 mg/dL (7-18); CARBON DIOXIDE,CO2 31.0 mEq/L (21-32); CHLORIDE,CL 105.0 mEq/L (98-107); CREATININE 0.9 mg/dL (0.55-1.02); EST CRCL DRUG DOSING (CG) 53.81 mL/min; ESTIMATED GFR 71.0 mL/min (>60); GLUCOSE RANDOM 107.0 mg/dL (70-99); POTASSIUM,K 4.6 mEq/L (3.5-5.1); PROTEIN TOTAL,TP 5.7 g/dl (6.4-8.2); SODIUM,NA 141.0 mEq/L (136-145)
[2025-04-01] MEDS: Ondansetron 4 MG Tab.DIS PO PRN (09:13)
[2025-04-01] MEDS ORDERED: Acetaminophen/HYDROcodone 325-5 MG Tab PO PRN (14:07)
[2025-04-04 08:27] VITALS: BP 120/93; PULSE 69
== END 2025-04-04 13:02 | DRG 480 ==
LOC: JD.ED 08:14 → JD.MS 10:37
PROVIDERS: ADMIT Internal Medicine; ATTEND Family Medicine
PROC: 0QS604Z Reposition Right Upper Femur with Internal Fixation Device, Open Approach (ICD-10-PCS; principal; 2025-03-27)
DX: S72.141A Displaced intertrochanteric fracture of right femur, initial encounter for closed fracture (principal); J96.01 Acute respiratory failure with hypoxia; E78.00 Pure hypercholesterolemia, unspecified; I10 Essential (primary) hypertension; M19.90 Unspecified osteoarthritis, unspecified site; G20.B1 Parkinson's disease with dyskinesia, without mention of fluctuations; F32.A Depression, unspecified; E83.42 Hypomagnesemia; E87.6 Hypokalemia; M81.0 Age-related osteoporosis without current pathological fracture; F41.9 Anxiety disorder, unspecified; E11.9 Type 2 diabetes mellitus without complications; D64.9 Anemia, unspecified; Z90.710 Acquired absence of both cervix and uterus; Z98.890 Other specified postprocedural states; Z79.899 Other long term (current) drug therapy; Z79.84 Long term (current) use of oral hypoglycemic drugs; Z86.73 Personal history of transient ischemic attack (TIA), and cerebral infarction without residual deficits; Z98.49 Cataract extraction status, unspecified eye; Z88.8 Allergy status to other drugs, medicaments and biological substances
CPT/HCPCS: 01230; 36415; 51701; 51798; 71045; 71045-26; 76000; 76000-26; 80053; 82550; 82947; 83735; 85014; 85018; 85025; 85610; 85730; 87641; 93005; 93010; 94761; 96374; 96375; 97110-GP; 97161-GP; 97166-GO; 97530-GP; 97535-GO; 99285; 99285-25; A9270-GY; C1713; C1758; C1776; J0665; J0690; J1100; J1171; J1644; J1650; J1885; J2003; J2250; J2371; J2405; J2704; J3010; J3475; J3480; J3490; J7050; J7120; U0002

== ENCOUNTER 2025-07-14 22:15 | Inpatient (IN) | payer OTHER ==
[2025-07-14 23:50] LABS: BASOPHILS ABSOLUTE AUTO 0.1 K/mm3 (0.0-0.2); BASOPHILS PERCENT AUTO 0.7 % (0.0-1.0); EOSINOPHILS ABSOLUTE AUTO 0.5 K/mm3 (0.0-0.4); EOSINOPHILS PERCENT AUTO 6.5 % (0.0-6.0); IMMATURE GRAN ABSOLUTE AUTO 0.02 K/mm3 (0.00-0.05); IMMATURE GRAN PERCENT AUTO 0.3 % (0.0-0.4); LYMPHOCYTES ABSOLUTE AUTO 2.6 K/mm3 (1.0-4.8); LYMPHOCYTES PERCENT AUTO 33.7 % (24.0-44.0); MEAN PLATELET VOLUME 10.3 fl (9.4-12.3); MONOCYTES ABSOLUTE AUTO 0.6 K/mm3 (0.0-0.8); MONOCYTES PERCENT AUTO 8.4 % (0.0-8.0); NEUTROPHILS ABSOLUTE AUTO 3.9 K/mm3 (1.8-7.7); NEUTROPHILS PERCENT AUTO 50.4 % (41.0-71.0); NRBC ABSOLUTE 0.00 (0.00-0.02); NRBC PERCENT 0.0 % (0.0-0.2); PLATELET COUNT,PLT 256 K/mm3 (150-400); RED BLOOD CELL COUNT 3.81 M/mm3 (4.10-5.30); WHITE BLOOD CELL COUNT,WBC 7.65 K/mm3 (3.9-11.3)
[2025-07-15 00:12] LABS: A/G RATIO 1.3 (1-2); ASPARTATE AMNIOTRANSFERASE,AST 26.0 U/L (15-37); BILIRUBIN TOTAL 0.5 mg/dL (0.2-1.0); BLOOD UREA NITROGEN,BUN 18.0 mg/dL (7-18); CARBON DIOXIDE,CO2 32.0 mEq/L (21-32); CHLORIDE,CL 110.0 mEq/L (98-107); CREATININE 1.2 mg/dL (0.55-1.02); EST CRCL DRUG DOSING (CG) 39.82 mL/min; ESTIMATED GFR 50.0 mL/min (>60); GLUCOSE RANDOM 110.0 mg/dL (70-99); POTASSIUM,K 3.5 mEq/L (3.5-5.1); PROTEIN TOTAL,TP 5.8 g/dl (6.4-8.2); SODIUM,NA 147.0 mEq/L (136-145)
[2025-07-15 00:15] LABS: LACTIC ACID 0.9 mmol/L (0.4-2.0)
[2025-07-15 00:31] LABS: ALANINE AMINOTRANSFERASE,ALT 9.0 U/L (14-59); ETHANOL BLOOD MEDICAL 0.0 gm% (0.00)
[2025-07-15 05:23] LABS: APPEARANCE,URINE CLEAR (Clear); GLUCOSE,URINE 2+ (Negative); OCCULT BLOOD,URINE NEGATIVE (Negative)
[2025-07-15 05:31] LABS: A/G RATIO 1.2 (1-2); ASPARTATE AMNIOTRANSFERASE,AST 25.0 U/L (15-37); BILIRUBIN TOTAL 0.5 mg/dL (0.2-1.0); BLOOD UREA NITROGEN,BUN 19.0 mg/dL (7-18); CARBON DIOXIDE,CO2 31.0 mEq/L (21-32); CHLORIDE,CL 112.0 mEq/L (98-107); CREATININE 1.0 mg/dL (0.55-1.02); EST CRCL DRUG DOSING (CG) 47.79 mL/min; ESTIMATED GFR 62.0 mL/min (>60); GLUCOSE RANDOM 113.0 mg/dL (70-99); POTASSIUM,K 3.8 mEq/L (3.5-5.1); PROTEIN TOTAL,TP 5.6 g/dl (6.4-8.2); SODIUM,NA 148.0 mEq/L (136-145)
[2025-07-15 05:32] LABS: BUPRENORPHINE SCREEN,URINE NEGATIVE (CUTOFF=10); METHADONE SCREEN, URINE NEGATIVE (CUTOFF=200); METHAMPHETAMINES SCREEN, URINE NEGATIVE (CUTOFF=500); OXYCODONE SCREEN,URINE NEGATIVE (CUT0FF=100); THC SCREEN,URINE 20 NG/ML NEGATIVE (CUTOFF=50)
[2025-07-15 05:34] LABS: SQUAMOUS EPITHELIAL CELLS,UR 0-5 /hpf (0-5); YEAST,URINE RARE (NOT SEEN)
[2025-07-15 05:43] LABS: AMPHETAMINES SCREEN, URINE NEGATIVE (CUTOFF=500)
[2025-07-15 05:51] LABS: ALANINE AMINOTRANSFERASE,ALT 6.0 U/L (14-59)
[2025-07-15] MEDS: cefTRIAXone 1 GM in Water For Injection, Sterile 10 ML IVPUSH ONE (08:41)
[2025-07-15 10:06] LABS: A/G RATIO 1.2 (1-2); ASPARTATE AMNIOTRANSFERASE,AST 24 U/L (15-37); BILIRUBIN TOTAL 0.5 mg/dL (0.2-1.0); BLOOD UREA NITROGEN,BUN 17 mg/dL (7-18); CARBON DIOXIDE,CO2 32 mEq/L (21-32); CHLORIDE,CL 110 mEq/L (98-107); CREATININE 0.9 mg/dL (0.55-1.02); EST CRCL DRUG DOSING (CG) 53.10 mL/min; ESTIMATED GFR 71 mL/min (>60); GLUCOSE RANDOM 110 mg/dL (70-99); POTASSIUM,K 4.0 mEq/L (3.5-5.1); PROTEIN TOTAL,TP 6.0 g/dl (6.4-8.2); SODIUM,NA 147 mEq/L (136-145)
[2025-07-15 10:08] LABS: TSH 2.519 uIU/mL (0.358-3.74)
[2025-07-15 10:49] LABS: ALANINE AMINOTRANSFERASE,ALT < 6 U/L (14-59)
[2025-07-15] MEDS ORDERED: 50% Dextrose in Water 50 ML Syringe IVPUSH PRN (15:33)
[2025-07-15 16:32] LABS: FOLIC ACID 10.0 ng/mL (8.6-58.9)
[2025-07-15] MEDS: Insulin Lispro 100 Unit/ML 3 ML KwikPen SUBCUT SCH (18:10)
[2025-07-16 05:28] LABS: BASOPHILS ABSOLUTE AUTO 0.1 K/mm3 (0.0-0.2); BASOPHILS PERCENT AUTO 1.1 % (0.0-1.0); EOSINOPHILS ABSOLUTE AUTO 0.5 K/mm3 (0.0-0.4); EOSINOPHILS PERCENT AUTO 6.8 % (0.0-6.0); IMMATURE GRAN ABSOLUTE AUTO 0.03 K/mm3 (0.00-0.05); IMMATURE GRAN PERCENT AUTO 0.4 % (0.0-0.4); LYMPHOCYTES ABSOLUTE AUTO 2.3 K/mm3 (1.0-4.8); LYMPHOCYTES PERCENT AUTO 31.9 % (24.0-44.0); MEAN PLATELET VOLUME 10.9 fl (9.4-12.3); MONOCYTES ABSOLUTE AUTO 0.9 K/mm3 (0.0-0.8); MONOCYTES PERCENT AUTO 12.2 % (0.0-8.0); NEUTROPHILS ABSOLUTE AUTO 3.5 K/mm3 (1.8-7.7); NEUTROPHILS PERCENT AUTO 47.6 % (41.0-71.0); NRBC ABSOLUTE 0.00 (0.00-0.02); NRBC PERCENT 0.0 % (0.0-0.2); PLATELET COUNT,PLT 214 K/mm3 (150-400); RED BLOOD CELL COUNT 4.16 M/mm3 (4.10-5.30); WHITE BLOOD CELL COUNT,WBC 7.31 K/mm3 (3.9-11.3)
[2025-07-16 05:44] LABS: A/G RATIO 1.1 (1-2); ASPARTATE AMNIOTRANSFERASE,AST 25.0 U/L (15-37); BILIRUBIN TOTAL 0.5 mg/dL (0.2-1.0); BLOOD UREA NITROGEN,BUN 13.0 mg/dL (7-18); CARBON DIOXIDE,CO2 30.0 mEq/L (21-32); CHLORIDE,CL 110.0 mEq/L (98-107); CREATININE 0.8 mg/dL (0.55-1.02); EST CRCL DRUG DOSING (CG) 59.73 mL/min; ESTIMATED GFR 81.0 mL/min (>60); GLUCOSE RANDOM 95.0 mg/dL (70-99); POTASSIUM,K 3.6 mEq/L (3.5-5.1); PROTEIN TOTAL,TP 5.7 g/dl (6.4-8.2); SODIUM,NA 146.0 mEq/L (136-145)
[2025-07-16 06:05] LABS: ALANINE AMINOTRANSFERASE,ALT 12.0 U/L (14-59)
[2025-07-16] MEDS: Nystatin Topical Powder 15 GM Bottle TOP SCH (12:53)
[2025-07-16] MEDS: Vitamin B6-pyridOXINE 50 MG Tab PO SCH (18:58)
[2025-07-16] MEDS: Cyanocobalamin (Vitamin B12) 1,000 MCG Tab PO SCH (18:58)
[2025-07-17 05:37] LABS: BASOPHILS ABSOLUTE AUTO 0.1 K/mm3 (0.0-0.2); BASOPHILS PERCENT AUTO 0.7 % (0.0-1.0); EOSINOPHILS ABSOLUTE AUTO 0.4 K/mm3 (0.0-0.4); EOSINOPHILS PERCENT AUTO 6.1 % (0.0-6.0); IMMATURE GRAN ABSOLUTE AUTO 0.02 K/mm3 (0.00-0.05); IMMATURE GRAN PERCENT AUTO 0.3 % (0.0-0.4); LYMPHOCYTES ABSOLUTE AUTO 2.3 K/mm3 (1.0-4.8); LYMPHOCYTES PERCENT AUTO 33.3 % (24.0-44.0); MEAN PLATELET VOLUME 10.7 fl (9.4-12.3); MONOCYTES ABSOLUTE AUTO 0.6 K/mm3 (0.0-0.8); MONOCYTES PERCENT AUTO 8.6 % (0.0-8.0); NEUTROPHILS ABSOLUTE AUTO 3.5 K/mm3 (1.8-7.7); NEUTROPHILS PERCENT AUTO 51.0 % (41.0-71.0); NRBC ABSOLUTE 0.00 (0.00-0.02); NRBC PERCENT 0.0 % (0.0-0.2); PLATELET COUNT,PLT 258 K/mm3 (150-400); RED BLOOD CELL COUNT 4.26 M/mm3 (4.10-5.30); WHITE BLOOD CELL COUNT,WBC 6.90 K/mm3 (3.9-11.3)
[2025-07-17 05:50] LABS: A/G RATIO 1.2 (1-2); ALANINE AMINOTRANSFERASE,ALT 18.0 U/L (14-59); ASPARTATE AMNIOTRANSFERASE,AST 23.0 U/L (15-37); BILIRUBIN TOTAL 0.6 mg/dL (0.2-1.0); BLOOD UREA NITROGEN,BUN 11.0 mg/dL (7-18); CARBON DIOXIDE,CO2 32.0 mEq/L (21-32); CHLORIDE,CL 106.0 mEq/L (98-107); CREATININE 0.9 mg/dL (0.55-1.02); EST CRCL DRUG DOSING (CG) 53.1 mL/min; ESTIMATED GFR 71.0 mL/min (>60); GLUCOSE RANDOM 114.0 mg/dL (70-99); POTASSIUM,K 2.9 mEq/L (3.5-5.1); PROTEIN TOTAL,TP 5.9 g/dl (6.4-8.2); SODIUM,NA 144.0 mEq/L (136-145)
[2025-07-17] MEDS: Potassium Chloride 20 MEQ Tab.ER PO ONE (09:40)
[2025-07-17 15:43] VITALS: BP 149/92; PULSE 70
== END 2025-07-17 15:25 | disposition home or self-care (01) | DRG 92 ==
LOC: JD.ED 22:15 → JD.MS 07-15 08:19 → UNDOADMIN 07-15 08:19 → JD.ICU 07-15 12:15
PROVIDERS: ADMIT Family Medicine; ATTEND Family Medicine
DX: G92.8 Other toxic encephalopathy (principal); E87.0 Hyperosmolality and hypernatremia; F06.8 Other specified mental disorders due to known physiological condition; Z66 Do not resuscitate; G20.A1 Parkinson's disease without dyskinesia, without mention of fluctuations; E78.00 Pure hypercholesterolemia, unspecified; I10 Essential (primary) hypertension; E87.8 Other disorders of electrolyte and fluid balance, not elsewhere classified; M19.90 Unspecified osteoarthritis, unspecified site; F32.A Depression, unspecified; F41.9 Anxiety disorder, unspecified; E11.9 Type 2 diabetes mellitus without complications; D64.9 Anemia, unspecified; Z98.49 Cataract extraction status, unspecified eye; Z88.8 Allergy status to other drugs, medicaments and biological substances; Z79.899 Other long term (current) drug therapy; Z79.01 Long term (current) use of anticoagulants; Z79.84 Long term (current) use of oral hypoglycemic drugs; Z90.710 Acquired absence of both cervix and uterus
CPT/HCPCS: 36415; 51702; 70450; 70450-26; 71045; 71045-26; 80053; 80306; 80307; 81001; 82140; 82607; 82746; 82947; 83605; 83735; 84295; 84443; 85025; 94761; 96360; 96361; 96372; 97116-GP; 97162-GP; 97166-GO; 97530-GP; 97535-GO; 99285-25; A9270-GY; J0696; J1630; J1650; J2359; J3490; J7030; J7070; Q3014; S5010

== ENCOUNTER 2025-08-09 11:16 | Emergency (ER) | payer MEDICARE, OTHER ==
[2025-08-09 12:00] LABS: BASOPHILS ABSOLUTE AUTO 0.1 K/mm3 (0.0-0.2); BASOPHILS PERCENT AUTO 0.7 % (0.0-1.0); EOSINOPHILS ABSOLUTE AUTO 0.2 K/mm3 (0.0-0.4); EOSINOPHILS PERCENT AUTO 2.2 % (0.0-6.0); IMMATURE GRAN ABSOLUTE AUTO 0.01 K/mm3 (0.00-0.05); IMMATURE GRAN PERCENT AUTO 0.1 % (0.0-0.4); LYMPHOCYTES ABSOLUTE AUTO 2.0 K/mm3 (1.0-4.8); LYMPHOCYTES PERCENT AUTO 22.6 % (24.0-44.0); MEAN PLATELET VOLUME 12.2 fl (9.4-12.3); MONOCYTES ABSOLUTE AUTO 0.5 K/mm3 (0.0-0.8); MONOCYTES PERCENT AUTO 5.6 % (0.0-8.0); NEUTROPHILS ABSOLUTE AUTO 6.2 K/mm3 (1.8-7.7); NEUTROPHILS PERCENT AUTO 68.8 % (41.0-71.0); NRBC ABSOLUTE 0.00 (0.00-0.02); NRBC PERCENT 0.0 % (0.0-0.2); PLATELET COUNT,PLT 202 K/mm3 (150-400); RED BLOOD CELL COUNT 5.01 M/mm3 (4.10-5.30); WHITE BLOOD CELL COUNT,WBC 9.04 K/mm3 (3.9-11.3)
[2025-08-09 12:25] LABS: A/G RATIO 1.5 (1-2); ASPARTATE AMNIOTRANSFERASE,AST 24 U/L (15-37); BILIRUBIN TOTAL 0.8 mg/dL (0.2-1.0); BLOOD UREA NITROGEN,BUN 18 mg/dL (7-18); CARBON DIOXIDE,CO2 26 mEq/L (21-32); CHLORIDE,CL 109 mEq/L (98-107); CREATININE 0.9 mg/dL (0.55-1.02); ESTIMATED GFR 71 mL/min (>60); GLUCOSE RANDOM 165 mg/dL (70-99); POTASSIUM,K 3.9 mEq/L (3.5-5.1); PROTEIN TOTAL,TP 6.5 g/dl (6.4-8.2); SODIUM,NA 146 mEq/L (136-145)
[2025-08-09 12:29] LABS: ETHANOL BLOOD MEDICAL 0.00 gm% (0.00)
[2025-08-09 12:44] LABS: ALANINE AMINOTRANSFERASE,ALT < 6 U/L (14-59)
[2025-08-09 14:44] LABS: APPEARANCE,URINE CLEAR (Clear); GLUCOSE,URINE NEGATIVE (Negative); OCCULT BLOOD,URINE NEGATIVE (Negative)
[2025-08-09 14:54] LABS: BUPRENORPHINE SCREEN,URINE NEGATIVE (CUTOFF=10); METHADONE SCREEN, URINE NEGATIVE (CUTOFF=200); METHAMPHETAMINES SCREEN, URINE NEGATIVE (CUTOFF=500); OXYCODONE SCREEN,URINE NEGATIVE (CUT0FF=100); THC SCREEN,URINE 20 NG/ML NEGATIVE (CUTOFF=50)
[2025-08-09 15:00] LABS: AMPHETAMINES SCREEN, URINE NEGATIVE (CUTOFF=500)
[2025-08-09 15:20] VITALS: BP 140/78; PULSE 87
== END 2025-08-09 15:15 | disposition home or self-care (01) ==
LOC: JD.ED 11:16
DX: F39 Unspecified mood [affective] disorder (principal); E11.9 Type 2 diabetes mellitus without complications; I10 Essential (primary) hypertension; E78.00 Pure hypercholesterolemia, unspecified; Z88.8 Allergy status to other drugs, medicaments and biological substances; Z79.01 Long term (current) use of anticoagulants; Z79.899 Other long term (current) drug therapy
CPT/HCPCS: 36415; 80053; 80143; 80179; 80306; 80307; 81001; 85025; 93005; 99284